=== PATIENT | male | born 1960 | race Caucasian/White ===

== ENCOUNTER 2019-07-15 14:00 | IRF | payer OTHER, SELFPAY ==
--- NOTE | ~2019-07-15 | XR_ITS ---
EXAMINATION: XR barium swallow modified DATE: 07/29/2019 09:23 INDICATION: Dysphagia. TECHNIQUE: Modified barium esophagram was performed by myself to administered fluoroscopy, in conjun ction with speech pathologist who administered barium in varying consistencies as per speech patholog ist documentation. This was recorded on tape. A single fluoroscopic spot image was recorded. The DAP for this procedure was 3.07 Gycm2. Fluoroscopy exposure time was 3.7 minutes. FINDINGS: Oral stage: Premature spilling into the pharynx. Pharyngeal phase: Adequate function. Laryngeal penetration: None. Aspiration: None. Laryngeal sensitivity: Present. IMPRESSION: Premature spilling into the pharynx, otherwise unremarkable modified esophagram. Please refer to speech pathologist findings and specific feeding recommendations. Reviewed, dictated and finalized at location A. IMPRESSION: Premature spilling into the pharynx, otherwise unremarkable modifie d esophagram. Please refer to speech pathologist findings and specific feeding recommendations.
--- NOTE | ~2019-07-15 | XR_ITS ---
EXAMINATION: XR G tube evaluation w imaging INDICATION: Assess PEG tube position TECHNIQUE: Portable AP view of the abdomen is obtained. 40 cc of Omnipaque 350 contrast were injected by the technologist. COMPARISON: None available FINDINGS: The PEG tube is within the stomach as evidenced by contrast opacification of the stomach. T here are no dilated loops of bowel. Enteric contrast material is seen throughout the colon, recommend correlation for history of recent enteric contrast administration not at this institution. IMPRESSION: 1. PEG tube within the stomach. Reviewed, dictated and finalized at location A.
[2019-07-15 14:00] VITALS: BP 104/50; PULSE 57; RESP 18; TEMP 36; O2SAT 95; BMI 28.1
--- NOTE | 2019-07-15 15:22 | ADMGEN ---
1400 Patient arrived via Medical Transport van by wheelchair. Alert and orientated. This patient, Carlito Daniels, was admitted to [facility] Room 221-02. Patient/family oriented to hospital policies and general routines including ID bracelet, bed and alarms, visiting hours, pain management, procedures, bathroom and other care routines, personal items, smoking policy, room service/diet, and visiting hours. Valuables list has been completed. Information on how to activate the Rapid Response Team has been discussed. Patient/Family are encouraged to report perceived risks to care and to ask questions if they do not understand what they are told or what they should do.
[2019-07-15 17:42] LABS: Glucose Point of Care 126 (65-105)
[2019-07-15] MEDS: INSULIN GLARGINE (*BKC) 100 UNITS/ML 35 UNITS SUB-Q (18:45)
[2019-07-15] MEDS: GABAPENTIN 300 MG CAPSULE PO (18:46)
[2019-07-15 22:00] VITALS: BP 109/62; PULSE 88; RESP 20; TEMP 36.9; O2SAT 94
[2019-07-15 23:56] LABS: Glucose Point of Care 134 (65-105)
[2019-07-16 04:48] LABS: Hemoglobin A1C 11.8 % (<5.7)
[2019-07-16 04:49] LABS: Blood Urea Nitrogen 45 mg/dL (9-20); Calcium 9.2 mg/dL (8.4-10.2); Carbon Dioxide 34 mmol/L (22-30); Chloride 95 mmol/L (98-107); Cholesterol 99 mg/dL (0-200); Estimated CRCL calculation 63 ml/min; Estimated Glomerular Filt Rate > 60; Glucose 190 mg/dL (75-110); HDL Direct 23 mg/dL; Potassium 3.9 mmol/L (3.4-5.0); Sodium 135 mmol/L (137-145); Triglycerides 105 mg/dL (<150)
[2019-07-16 04:50] LABS: Basophils Absolute Auto 0.1 K/mm3 (0.0-0.1); Basophils Percent Auto 0.4 % (0.2-1.2); Eosinophils Absolute Auto 0.4 K/mm3 (0-0.3); Eosinophils Percent Auto 3.2 % (0-4.4); Hematocrit 45.4 % (42.0-52.0); Hemoglobin 14.6 g/dL (14.0-18.0); Immature Granulocyte Absolute 0.05 K/mm3 (0.00-0.031); Immature Granulocyte Percent A 0.4 % (0-0.5); Lymphocytes Absolute Auto 2.05 K/mm3 (0.9-3.2); Lymphocytes Percent Auto 16.9 % (18.3-44.2); Mean Corpuscular HGB Conc 32.2 g/dl (32-36); Mean Corpuscular Hemoglobin 29.4 pg (26-34); Mean Corpuscular Volume 91.3 fl (80-100); Mean Platelet Volume 12.2 fl (7.4-10.4); Monocytes Absolute Auto 1.1 K/mm3 (0.1-0.6); Monocytes Percent Auto 8.7 % (2.6-8.5); Neutrophils Absolute Auto 8.5 K/mm3 (1.3-6.7); Neutrophils Percent Auto 70.4 % (45.5-73.1); Platelet Count Result 306 k/mm3 (150-375); Red Blood Count 4.97 M/mm3 (4.6-6.20); Red Cell Distribution Width 13.2 % (11.5-14.5); White Blood Count 12.1 K/mm3 (4.5-10.0)
[2019-07-16 04:59] LABS: LDL Cholesterol Direct 53 mg/dL
[2019-07-16 05:48] LABS: Glucose Point of Care 180 (65-105)
[2019-07-16 06:00] VITALS: BP 123/64; PULSE 66; RESP 16; TEMP 36.8; O2SAT 94
[2019-07-16] MEDS: FERROUS SULFATE 324 MG TABLET PO (08:34)
[2019-07-16] MEDS: ASPIRIN 81 MG CHEWABLE TABLET FEED TUBE (08:35)
[2019-07-16] MEDS: ATORVASTATIN 40 MG TABLET PO (08:35)
[2019-07-16 08:36] VITALS: PULSE 66
[2019-07-16] MEDS: CHLORTHALIDONE 25 MG TABLET FEED TUBE (08:36)
[2019-07-16] MEDS: carvediloL 25 MG TABLET FEED TUBE ×2 (08:36→17:28)
[2019-07-16] MEDS: GABAPENTIN 300 MG CAPSULE PO ×3 (08:37→17:28)
[2019-07-16] MEDS: CLOPIDOGREL BISULFATE 75 MG TABLET FEED TUBE (08:37)
[2019-07-16] MEDS: DOCUSATE SODIUM LIQ 100 MG/10 ML UDC FEED TUBE (08:37)
[2019-07-16] MEDS: INSULIN GLARGINE (*BKC) 100 UNITS/ML 35 UNITS SUB-Q ×2 (08:38→17:32)
[2019-07-16] MEDS: lisinopriL 20 MG TABLET 40 MG FEED TUBE (08:38)
[2019-07-16 11:43] LABS: Glucose Point of Care 238 (65-105)
[2019-07-16] MEDS: INSULIN ASPART (*BKC) 100 UNITS/ML SUB-Q (12:28)
--- NOTE | 2019-07-16 13:48 | REHAB_ITS ---
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 The patient was seen on 07/15 at 10:30 a.m. HISTORY OF PRESENT ILLNESS: A 58-year-old right-handed male with past medical history of: 1. Diabetes mellitus. 2. Hypertension. 3. Hyperlipidemia. 4. Polyarthritis. He presented to [facility] with left upper extremity, left-sided of face and left lower extremity weakness along with the gaze deviation to the left with hemineglect and hemisensory loss. Initial NIHSS was 8. Upon presentation, his blood pressure was over 200, was difficult to control. He was given tPA and was started on nitroglycerin drip and given a hydralazine bolus as well. He was then transferred to [facility] in [place], [place]. While getting tPA, he was taken to the cardiac catheterization. There was no significant coronary artery disease. No thrombectomy was performed. However, the patient was felt to have a posterior circulation stroke and given the anatomy in the amount of atherosclerosis. Postprocedure, the patient was hypertensive and he was having significant issues clearing the secretion. He was noted to be aphasic and dysarthric. Therefore, he was intubated. When he was extubated on 07/01/2019, Vascular Neurology was consulted and recommended dual antiplatelet therapy and high intensity statin. The patient was continued on aspirin, Plavix, and atorvastatin. He failed his swallowing study and a PEG tube was placed on 07/07/2019. He was at goal and tolerating at present. During this hospital, the patient has experienced leukocytosis with unclear etiology. Chest x-ray within normal limits. No abdominal pain. PICC site looks clean. The patient was started on broad-spectrum antibiotics. His WBCs were now downtrending and antibiotic were deescalated. He also had hyperglycemia, insulin regimen was changed and Monitor. Left shoulder pain without fracture on x-ray was noted. Physical examination continued to reveal left-sided weakness, impaired balance, decreased gross motor control, dysphagia, dysarthria. He was discharged to rehab on NovoLog for DVT prophylaxis. He had not traveled outside the [place] or had contact with someone, who was still and has traveled outside the [place] in the past 21 days. He has not traveled to an area of the [place] that was experiencing known transmission of COVID and has not had close personal contact with anyone that has one. The patient did not have a fever, did not experience any lower respiratory illness symptoms. Therapy was initiated on the acute care facility and patient was transferred to us from [facility] on 07/15/2019. SURGERY OR FALL: The patient has had major surgery in the last 100 days prior to admission, had a PEG tube placement, this admission has had no falls in the past year. The patient has had no fall with injury in the past year as well. PAST MEDICAL HISTORY: Consistent with: 1. Diabetes mellitus. 2. Hypertension. 3. Hyperlipidemia. 4. Polyarthritis. PAST SURGICAL HISTORY: 1. Hernial repair. 2. Cardiac catheterization. SOCIAL HISTORY: The patient lives with his in one level house with 1 step to enter, was completely independent prior with no assistive device. was available to assist him following inpatient rehab if necessary. The patient reported no falls in the last 6 months. The patient has had PEG tube placement in this admission. He is a never smoker and at current, he is a smokeless tobacco user. No alcohol use. FAMILY HISTORY: Positive for the cancer in the mother, cancer in the father, heart attack in sister and cancer in the brother, [place]
[2019-07-16 14:00] VITALS: BP 104/75; PULSE 60; RESP 20; TEMP 36.6; O2SAT 98
[2019-07-16 17:28] VITALS: PULSE 60
[2019-07-16 17:49] LABS: Glucose Point of Care 188 (65-105)
[2019-07-16] MEDS: ENOXAPARIN 40 MG/0.4 ML SYRINGE SUB-Q (20:28)
[2019-07-16 22:00] VITALS: BP 102/63; PULSE 60; RESP 16; TEMP 36.3; O2SAT 94
[2019-07-16 23:49] LABS: Glucose Point of Care 143 (65-105)
[2019-07-17 05:58] LABS: Glucose Point of Care 186 (65-105)
[2019-07-17 06:00] VITALS: BP 120/69; PULSE 62; RESP 18; TEMP 36.4; O2SAT 95
[2019-07-17] MEDS: FERROUS SULFATE 324 MG TABLET PO (09:13)
[2019-07-17 09:14] VITALS: PULSE 62
[2019-07-17] MEDS: carvediloL 25 MG TABLET FEED TUBE ×2 (09:14→17:48)
[2019-07-17] MEDS: CHLORTHALIDONE 25 MG TABLET FEED TUBE (09:14)
[2019-07-17] MEDS: ATORVASTATIN 40 MG TABLET PO (09:14)
[2019-07-17] MEDS: ASPIRIN 81 MG CHEWABLE TABLET FEED TUBE (09:14)
[2019-07-17] MEDS: INSULIN GLARGINE (*BKC) 100 UNITS/ML 35 UNITS SUB-Q ×2 (09:15→17:50)
[2019-07-17] MEDS: DOCUSATE SODIUM LIQ 100 MG/10 ML UDC FEED TUBE (09:15)
[2019-07-17] MEDS: GABAPENTIN 300 MG CAPSULE PO ×3 (09:15→17:49)
[2019-07-17] MEDS: CLOPIDOGREL BISULFATE 75 MG TABLET FEED TUBE (09:15)
[2019-07-17] MEDS: lisinopriL 20 MG TABLET 40 MG FEED TUBE (09:16)
--- NOTE | 2019-07-17 11:21 | WPDNEURORHBP ---
Subjective Date/time seen: aarti medullary stroke with DM,hypertension,[id number]/07/20 11:21 Functional Status Ambulation Ability Ambulation Assistive Devices: Railings Transfers Ability Ability to Transfer In/Out of Chair: Moderate Assistance X 1 Exam Const: General: cooperative, comfortable and no acute distress Nutritional Appearance: average body habitus HENMT: Head: normal to inspection Ears: hearing grossly normal bilaterally General nose exam: No nasal discharge present Eyes: General: appearance normal, both eyes and all related structures Periorbital: periorbital findings normal Conjunctivae: conjunctivae normal Cornea: corneas normal Pupils: Equal, round and reactive pupils present EOM: EOMs intact bilaterally Neck: Neck: full ROM Resp: Effort & Inspection: normal respiratory effort Auscultation: clear to auscultation bilaterally Cardio: Rate: regular rate Rhythm: regular rhythm GI: Auscultation: normal bowel sounds Skin: General skin exam: no rashes or lesions noted Neuro: General: oriented to person and moves all extremities Cranial nerves: Yes Equal, round and reactive pupils present, Yes Bilaterally intact EOM present, Yes Nystagmus not present and Yes Normal hearing present Objective Data Vital Signs Vital Signs: Vital Signs - 24 hr 07/16/19 14:00 07/16/19 17:28 07/16/19 22:00 Temperature 36.6 C 36.3 C L Pulse Rate 60 60 60 Respiratory Rate 20 16 Blood Pressure 104/75 102/63 Pulse Oximetry 98 94 07/17/19 06:00 07/17/19 09:14 Temperature 36.4 C Pulse Rate 62 62 Respiratory Rate 18 Blood Pressure 120/69 Pulse Oximetry 95 Intake/Output Intake/Output: Intake & Output 07/14/19 07/15/19 07/16/19 07/17/19 23:59 23:59 23:59 23:59 Intake Total 3132 1020 Output Total 750 800 Balance 2382 220 Meds/Results Medications: Active Medications Generic Name Dose Route Start Last Admin Trade Name Freq PRN Reason Stop Dose Admin Hydrocodone Bitart/Acetaminophen 1 tab 07/15/19 17:00 07/17/19 09:15 [place] 7.5-325 Mg FEED TUBE 1 tab BID JIMMIE Administration Aspirin 81 mg 07/16/19 09:00 07/17/19 09:14 Aspirin Chewable FEED TUBE 81 mg DAILY JIMMIE Administration Atorvastatin Calcium 40 mg 07/16/19 09:00 07/17/19 09:14 Lipitor PO 40 mg DAILY JIMMIE Administration Bisacodyl 10 mg 07/15/19 16:25 Dulcolax Suppository RECTAL DAILY PRN Constipation Carvedilol 25 mg 07/16/19 09:00 07/17/19 09:14 Coreg FEED TUBE 25 mg BID JIMMIE Administration Chlorthalidone 25 mg 07/16/19 09:00 07/17/19 09:14 [place] FEED TUBE 25 mg DAILY JIMMIE Administration Clopidogrel Bisulfate 75 mg 07/16/19 09:00 07/17/19 09:15 Plavix FEED TUBE 75 mg DAILY JIMMIE Administration Dextrose 12.5 gm 07/15/19 16:19 Dextrose 50% Syringe IV PUSH PRN PRN Hypoglycemia Protocol Docusate Sodium 100 mg 07/16/19 09:00 07/17/19 09:15 Colace Liquid FEED TUBE 100 mg DAILY JIMMIE Administration Enoxaparin Sodium 40 mg 07/16/19 21:00 07/16/19 20:28 Lovenox SUB-Q 40 mg HS [facility] Administration Fentanyl 12 mcg 07/16/19 09:00 Duragesic 12 Mcg Patch TRANSDERM Q72H [facility] Ferrous Sulfate 324 mg 07/16/19 08:00 07/17/19 09:13 Ferrous Sulfate PO 324 mg DAILY@0800 [facility] Administration Gabapentin 300 mg 07/15/19 17:00 07/17/19 09:15 Neurontin PO 300 mg TID JIMMIE Administration Glucagon 1 mg 07/15/19 16:19 Glucagon For Inj IM PRN PRN Hypoglycemia Protocol Glucose 15 gm 07/15/19 17:55 Glutose 15 FEED TUBE PRN PRN Hypoglycemia Protocol Dextrose 1,000 mls @ 100 mls/hr 07/15/19 16:19 Dextrose 5% 1,000 Ml IVPB PRN PRN Hypoglycemia Protocol Insulin Aspart 3 - 6 units 07/15/19 18:00 07/17/19 05:55 Novolog SUB-Q Not Given Q6HR [facility] Protocol Insulin Glargine 35 units 07/15/19 17:00 07/17/19 09:15 Nicho
[2019-07-17 12:09] LABS: Glucose Point of Care 182 (65-105)
[2019-07-17 14:00] VITALS: BP 109/57; PULSE 62; RESP 18; TEMP 36.3; O2SAT 97
[2019-07-17 17:48] VITALS: PULSE 62
[2019-07-17 18:14] LABS: Glucose Point of Care 180 (65-105)
[2019-07-17] MEDS: ENOXAPARIN 40 MG/0.4 ML SYRINGE SUB-Q (20:26)
[2019-07-17 22:00] VITALS: BP 103/54; PULSE 57; RESP 18; TEMP 36.7; O2SAT 95
[2019-07-17 23:57] LABS: Glucose Point of Care 155 (65-105)
[2019-07-18 05:48] LABS: Glucose Point of Care 188 (65-105)
[2019-07-18 06:00] VITALS: BP 120/82; PULSE 61; RESP 18; TEMP 36.9; O2SAT 92
[2019-07-18] MEDS: ASPIRIN 81 MG CHEWABLE TABLET FEED TUBE (09:14)
[2019-07-18] MEDS: FERROUS SULFATE 324 MG TABLET PO (09:14)
[2019-07-18] MEDS: CHLORTHALIDONE 25 MG TABLET FEED TUBE (09:14)
[2019-07-18] MEDS: ATORVASTATIN 40 MG TABLET PO (09:14)
[2019-07-18] MEDS: DOCUSATE SODIUM LIQ 100 MG/10 ML UDC FEED TUBE (09:14)
[2019-07-18] MEDS: CLOPIDOGREL BISULFATE 75 MG TABLET FEED TUBE (09:14)
[2019-07-18] MEDS: GABAPENTIN 300 MG CAPSULE PO ×3 (09:15→17:54)
[2019-07-18] MEDS: lisinopriL 20 MG TABLET 40 MG FEED TUBE (09:15)
[2019-07-18] MEDS: INSULIN GLARGINE (*BKC) 100 UNITS/ML 35 UNITS SUB-Q ×2 (09:15→17:54)
[2019-07-18 09:22] VITALS: PULSE 61
[2019-07-18] MEDS: carvediloL 25 MG TABLET FEED TUBE ×2 (09:22→17:53)
--- NOTE | 2019-07-18 10:13 | RPD ---
INDIVIDUALIZED PLAN OF CARE FOR Carlito Daniels Brief Synthesis of Pre-Admission Screen, Post-Admission Evaluation and Therapy Evaluations: The patient presents to rehab with acute left lateral medullary stroke. Comorbidities include Left-sided hemiparesis, oropharyngeal dysphagia, leukocytosis, trechobronchitis, hypertensive urgency, type 2 diabetes mellitus with hyperglycemia, left shoulder pain, dysarthria, aspiration pneumonia, status post tPA. The patient requires physician services for neurology services, medical oversight, and coordination of care. Emotional needs will be monitored as depression is a common sequelae of stroke. The patient needs physician monitoring and treatment of hypertension, dysphagia, leukocytosis, uncontrolled diabetes mellitus, monitoring for adverse reactions to new medications, monitoring of infection, and pain control. The patient requires nursing services for frequent neuro checks, anticoagulation therapy, medication management and education, pressure relief and skin care management, monitoring of labs, diabetes management and education, and fall/safety precautions. Deficits include:ADLs, Balance, Endurance, Family Training/Education, Mobility, Pain Management, ROM, Safety, Speech, Strength, Swallowing, Transfers Line Tender/Case Management for: Discharge Planning and Patient/Family Counseling Physical Therapy: 5 days per week for 60 minutes. Treatments may include: Therapeutic Exercise, Gait Training, Neuromuscular Re-education, Transfer Training, Community Reintegration, Bed Mobility, Patient/Family Education, Wheelchair Mobility Group Therapy/Concurrent Therapy Rationales: -Improve attention span during functional activities in a distracted environment. -Enhance problem solving and/or adequate judgment skills during functional activities in a distracted environment. -Promote increased safety awareness in a distracted environment to reduce fall risk with functional tasks, transfers, and ambulation to allow a more safe, self-sufficient return to the home environment. -Improve dynamic balance skills to promote safety and independence with functional activities in a distracted environment for maximum gain. Occupational Therapy: 5 days per week for 60 minutes. Treatments may include: Therapeutic Exercise, Therapeutic Activity, Cognitive Training, Self-Care Transfer Training, Community Reintegration, Home Management, Patient/Family Education, Wheelchair Mobility Training, Energy Conservation Training Group Therapy/Concurrent Therapy Rationales: -Allow therapist to observe and teach generalization and carry-over of skills learned in individual therapy. -Enhance problem solving and sequencing skills during therapeutic activities in a distracted environment. -Promote increased safety awareness in a realistic setting to reduce fall risk with functional tasks due to visual and verbal distractions. -Increase functional level with ADLs, ADL transfers and use of adaptive equipment through therapeutic activities with others while promoting safety to allow a more safe, self-sufficient return home. Speech Therapy: 5 days per week for 60 minutes. Treatments may include: Dysphasia Therapy, Speech/Language/Communication Therapy, Cognitive Training, Patient/Family Education Group Therapy/Concurrent Therapy - Rationale: -Allow therapist to observe and teach generalization and carry-over of skills learned in individual therapy. -Improve comprehension skills with complex or abstract ideas through discussion in a realistic setting. -Enhance problem solving skills with complex issues during activities in a distracted environment. -Promote increased memory skills and concentration in a distracted environment for a safe transition home. -Improve attention and focus with language/communication skills in a realistic and supportive therapeutic setting. -Allow for practice of expression of basic needs and ideas through functional activities with others. Becca
[2019-07-18 10:44] VITALS: BMI 28.1
[2019-07-18] MEDS: INSULIN ASPART (*BKC) 100 UNITS/ML SUB-Q (12:50)
[2019-07-18 14:00] VITALS: BP 98/73; PULSE 62; RESP 16; TEMP 36.6; O2SAT 98
[2019-07-18 17:53] VITALS: PULSE 62
[2019-07-18] MEDS: ENOXAPARIN 40 MG/0.4 ML SYRINGE SUB-Q (21:13)
[2019-07-18 22:00] VITALS: BP 103/56; PULSE 57; RESP 18; TEMP 36.3; O2SAT 95
[2019-07-19 01:05] LABS: Glucose Point of Care 193 (65-105)
[2019-07-19 01:05] LABS: Glucose Point of Care 189 (65-105)
[2019-07-19 01:05] LABS: Glucose Point of Care 226 (65-105)
[2019-07-19 05:55] VITALS: BP 132/77; PULSE 61; RESP 18; TEMP 36.7; O2SAT 98
[2019-07-19] MEDS: INSULIN ASPART (*BKC) 100 UNITS/ML SUB-Q ×2 (06:10→12:04)
[2019-07-19 06:54] LABS: Glucose Point of Care 232 (65-105)
[2019-07-19] MEDS: FERROUS SULFATE 324 MG TABLET PO (10:39)
[2019-07-19] MEDS: ASPIRIN 81 MG CHEWABLE TABLET FEED TUBE (10:39)
[2019-07-19] MEDS: ATORVASTATIN 40 MG TABLET PO (10:39)
[2019-07-19 10:40] VITALS: PULSE 61
[2019-07-19] MEDS: carvediloL 25 MG TABLET FEED TUBE ×2 (10:40→17:50)
[2019-07-19] MEDS: DOCUSATE SODIUM LIQ 100 MG/10 ML UDC FEED TUBE (10:40)
[2019-07-19] MEDS: CLOPIDOGREL BISULFATE 75 MG TABLET FEED TUBE (10:40)
[2019-07-19] MEDS: CHLORTHALIDONE 25 MG TABLET FEED TUBE (10:40)
[2019-07-19] MEDS: GABAPENTIN 300 MG CAPSULE PO ×3 (10:41→17:50)
[2019-07-19] MEDS: INSULIN GLARGINE (*BKC) 100 UNITS/ML 35 UNITS SUB-Q ×2 (10:43→17:53)
[2019-07-19] MEDS: lisinopriL 20 MG TABLET 40 MG FEED TUBE (10:44)
--- NOTE | 2019-07-19 12:30 | PCDIET ---
Nutrition Follow-Up Complete: Nutrition Diagnosis: Inadequate oral intake related to dysphagia as evidenced by need for g-tube feedings. Nutrition Goal: Patient to meet estimated nutritional needs. Goal met. Patient tolerating tube feedings well; however, therapy has requested bolus feedings to allow patient to be off feeding pump during therapy. New order for 360mL Glucerna 1.2 every 6 hours with 150mL water flush every 6 hours which will not change amount of kcal, protein, or free water administered. Last recorded weight is 84 kg. Recommend obtaining new weight. Bowel Motility: Last documented BM 07/15/19 - however, patient reports regular BMs. Labs Reviewed: Glu (232) Meds Noted: Colace, Ferrous Sulfate, Novolog, Lantus Additional Notes: No documented skin breakdown. Will continue to monitor with same goal. Nutrition Monitoring and Evaluation: Follow up every Thursday/Thursday.
[2019-07-19 12:34] LABS: Glucose Point of Care 239 (65-105)
[2019-07-19 14:00] VITALS: BP 105/64; PULSE 60; RESP 18; TEMP 36.9; O2SAT 98
--- NOTE | 2019-07-19 14:24 | WPDNEURORHBP ---
Subjective Date/time seen: 07/19/19 14:24 Interval history: this 58-year-old gentleman is here after having had left medullary stroke which has left him with the dysphagia right-sided moderately severe hemiparesis and dysarthria he has a PEG tube and he is NPO at this time otherwise he denies any headache nausea vomiting chest pain shortness of breath fever chills sore throat and engage in therapy fairly well Review of Systems Review of Systems: All systems reviewed & are unremarkable except as noted in HPI and below Functional Status Ambulation Ability Ability to Ambulate 10 Feet: Moderate Assistance X 1 Ambulation Assistive Devices: Cane, Alberto and Railings Transfers Ability Ability to Transfer In/Out of Chair: Minimum Assistance X 1 Exam Const: General: comfortable and no acute distress HENMT: General nose exam: Normal nares present Mouth: Yes moist mucous membranes Eyes: General: appearance normal, both eyes and all related structures Neck: Neck: supple and no JVD Resp: Effort & Inspection: normal respiratory effort Auscultation: clear to auscultation bilaterally Cardio: Rate: regular rate Rhythm: regular rhythm GI: GI Palp: Yes Soft to palpation Auscultation: normal bowel sounds Skin: General skin exam: normal color and no rashes or lesions noted Neuro: Other: patient is awake and alert has dysarthria and dysphagia and right-sided hemiparesis slowly improving the PEG tube is intact and functioning well needing assistance is almost all the activities of daily Extrem: General: normal to inspection Psych: Mental Status: mental status grossly normal Objective Data Vital Signs Vital Signs: Vital Signs - 24 hr 07/18/19 17:53 07/18/19 22:00 07/19/19 05:55 Temperature 36.3 C L 36.7 C Pulse Rate 62 57 L 61 Respiratory Rate 18 18 Blood Pressure 103/56 L 132/77 Pulse Oximetry 95 98 07/19/19 10:40 Temperature Pulse Rate 61 Respiratory Rate Blood Pressure Pulse Oximetry Intake/Output Intake/Output: Intake & Output 07/16/19 07/17/19 07/18/19 07/19/19 23:59 23:59 23:59 23:59 Intake Total 3132 1020 1020 1568 Output Total 750 1550 800 550 Balance 2382 -808 390 6051 Meds/Results Medications: Active Medications Generic Name Dose Route Start Last Admin Trade Name Freq PRN Reason Stop Dose Admin Hydrocodone Bitart/Acetaminophen 1 tab 07/15/19 17:00 07/19/19 10:42 [place] 7.5-325 Mg FEED TUBE 1 tab BID JIMMIE Administration Aspirin 81 mg 07/16/19 09:00 07/19/19 10:39 Aspirin Chewable FEED TUBE 81 mg DAILY JIMMIE Administration Atorvastatin Calcium 40 mg 07/16/19 09:00 07/19/19 10:39 Lipitor PO 40 mg DAILY JIMMIE Administration Bisacodyl 10 mg 07/15/19 16:25 Dulcolax Suppository RECTAL DAILY PRN Constipation Carvedilol 25 mg 07/16/19 09:00 07/19/19 10:40 Coreg FEED TUBE 25 mg BID JIMMIE Administration Chlorthalidone 25 mg 07/16/19 09:00 07/19/19 10:40 [place] FEED TUBE 25 mg DAILY JIMMIE Administration Clopidogrel Bisulfate 75 mg 07/16/19 09:00 07/19/19 10:40 Plavix FEED TUBE 75 mg DAILY JIMMIE Administration Dextrose 12.5 gm 07/15/19 16:19 Dextrose 50% Syringe IV PUSH PRN PRN Hypoglycemia Protocol Docusate Sodium 100 mg 07/16/19 09:00 07/19/19 10:40 Colace Liquid FEED TUBE 100 mg DAILY JIMMIE Administration Enoxaparin Sodium 40 mg 07/16/19 21:00 07/18/19 21:13 Lovenox SUB-Q 40 mg HS JIMMIE Administration Fentanyl 12 mcg 07/16/19 09:00 Duragesic 12 Mcg Patch TRANSDERM Q72H [facility] Ferrous Sulfate 324 mg 07/16/19 08:00 07/19/19 10:39 Ferrous Sulfate PO 324 mg DAILY@0800 JIMMIE Administration Gabapentin 300 mg 07/15/19 17:00 07/19/19 12:04 Neurontin PO 300 mg TID JIMMIE Administration Glucagon 1 mg 07/15/19 16:19 Glucagon For Inj IM PRN PRN Hypoglycemia Protocol Glucose 15 gm 07/15/19 17:55 Glutose 15 FEED TUBE
[2019-07-19 17:41] LABS: Glucose Point of Care 124 (65-105)
[2019-07-19 17:50] VITALS: PULSE 60
--- NOTE | 2019-07-19 19:29 | PC.NURSE ---
At 1730 patients called and had concerns about patient being depressed. she requested that he be put on an antidepressant. I spoke with Mr. Daniels, he stated he was sad for awhile today because he found out that it will take longer for him to feel better. he was very adamant that he is not depressed and does not want an antidepressant
[2019-07-19] MEDS: ENOXAPARIN 40 MG/0.4 ML SYRINGE SUB-Q (20:29)
[2019-07-19 22:00] VITALS: BP 84/51; PULSE 57; RESP 18; TEMP 35.9; O2SAT 95
[2019-07-19 23:50] LABS: Glucose Point of Care 131 (65-105)
[2019-07-20 06:00] VITALS: BP 106/61; PULSE 55; RESP 18; TEMP 35.8; O2SAT 98
[2019-07-20 06:48] LABS: Glucose Point of Care 89 (65-105)
[2019-07-20] MEDS: FERROUS SULFATE 324 MG TABLET PO (08:57)
[2019-07-20] MEDS: ATORVASTATIN 40 MG TABLET PO (08:57)
[2019-07-20] MEDS: ASPIRIN 81 MG CHEWABLE TABLET FEED TUBE (08:57)
[2019-07-20 08:58] VITALS: PULSE 62
[2019-07-20] MEDS: carvediloL 25 MG TABLET FEED TUBE ×2 (08:58→17:40)
[2019-07-20] MEDS: DOCUSATE SODIUM LIQ 100 MG/10 ML UDC FEED TUBE (08:59)
[2019-07-20] MEDS: CLOPIDOGREL BISULFATE 75 MG TABLET FEED TUBE (08:59)
[2019-07-20] MEDS: INSULIN GLARGINE (*BKC) 100 UNITS/ML 35 UNITS SUB-Q ×2 (08:59→17:41)
[2019-07-20] MEDS: lisinopriL 20 MG TABLET 40 MG FEED TUBE (08:59)
[2019-07-20] MEDS: GABAPENTIN 300 MG CAPSULE PO ×3 (08:59→17:41)
[2019-07-20] MEDS: CHLORTHALIDONE 25 MG TABLET FEED TUBE (08:59)
[2019-07-20] MEDS: NYSTATIN 100,000 UNITS/ML SUSP 5 ML ORAL.SUSP PO ×3 (12:24→20:12)
[2019-07-20 12:25] LABS: Glucose Point of Care 132 (65-105)
--- NOTE | 2019-07-20 12:39 | WPDNEURORHBP ---
Subjective Date/time seen: 07/20/19 12:39 Interval history: this 58-year-old gentleman is here after having had medullary infarct which has left him with the dysphagia and the moderately severe right-sided hemiparesis he is being tube fed because of dysphagia however overall getting better he took shower and feeling much better he denies any headache nausea vomiting chest pain shortness of breath fever chills or sore throat Review of Systems Review of Systems: All systems reviewed & are unremarkable except as noted in HPI and below Functional Status Ambulation Ability Ability to Ambulate 10 Feet: Moderate Assistance X 1 Ambulation Assistive Devices: Railings Transfers Ability Ability to Transfer In/Out of Chair: Minimum Assistance X 1 Exam Const: General: comfortable and no acute distress HENMT: General nose exam: Normal nares present Mouth: Yes moist mucous membranes Eyes: General: appearance normal, both eyes and all related structures Neck: Neck: supple and no JVD Resp: Effort & Inspection: normal respiratory effort Auscultation: clear to auscultation bilaterally Cardio: Rate: regular rate Rhythm: regular rhythm GI: GI Palp: Yes Soft to palpation Auscultation: normal bowel sounds Other: the PEG tube is clean and healthy and functioning well Skin: General skin exam: normal color and no rashes or lesions noted Neuro: Other: patient dysarthria is improving and right-sided hemiparesis improving overall improvement is noted Extrem: General: normal to inspection Psych: Mental Status: mental status grossly normal Objective Data Vital Signs Vital Signs: Vital Signs - 24 hr 07/19/19 14:00 07/19/19 17:50 07/19/19 22:00 Temperature 36.9 C 35.9 C L Pulse Rate 60 60 57 L Respiratory Rate 18 18 Blood Pressure 105/64 84/51 L Pulse Oximetry 98 95 07/20/19 06:00 07/20/19 08:58 Temperature 35.8 C L Pulse Rate 55 L 62 Respiratory Rate 18 Blood Pressure 106/61 Pulse Oximetry 98 Intake/Output Intake/Output: Intake & Output 07/17/19 07/18/19 07/19/19 07/20/19 23:59 23:59 23:59 23:59 Intake Total 1020 1020 1568 1000 Output Total 7956 076 5142 800 Balance -530 220 418 200 Meds/Results Medications: Active Medications Generic Name Dose Route Start Last Admin Trade Name Freq PRN Reason Stop Dose Admin Hydrocodone Bitart/Acetaminophen 1 tab 07/15/19 17:00 07/20/19 08:59 [place] 7.5-325 Mg FEED TUBE 1 tab BID JIMMIE Administration Aspirin 81 mg 07/16/19 09:00 07/20/19 08:57 Aspirin Chewable FEED TUBE 81 mg DAILY JIMMIE Administration Atorvastatin Calcium 40 mg 07/16/19 09:00 07/20/19 08:57 Lipitor PO 40 mg DAILY JIMMIE Administration Bisacodyl 10 mg 07/15/19 16:25 Dulcolax Suppository RECTAL DAILY PRN Constipation Carvedilol 25 mg 07/16/19 09:00 07/20/19 08:58 Coreg FEED TUBE 25 mg BID JIMMIE Administration Chlorthalidone 25 mg 07/16/19 09:00 07/20/19 08:59 [place] FEED TUBE 25 mg DAILY JIMMIE Administration Clopidogrel Bisulfate 75 mg 07/16/19 09:00 07/20/19 08:59 Plavix FEED TUBE 75 mg DAILY JIMMIE Administration Dextrose 12.5 gm 07/15/19 16:19 Dextrose 50% Syringe IV PUSH PRN PRN Hypoglycemia Protocol Docusate Sodium 100 mg 07/16/19 09:00 07/20/19 08:59 Colace Liquid FEED TUBE 100 mg DAILY JIMMIE Administration Enoxaparin Sodium 40 mg 07/16/19 21:00 07/19/19 20:29 Lovenox SUB-Q 40 mg HS JIMMIE Administration Fentanyl 12 mcg 07/16/19 09:00 [place] 12 Mcg Patch TRANSDERM Q72H [facility] Ferrous Sulfate 324 mg 07/16/19 08:00 07/20/19 08:57 Ferrous Sulfate PO 324 mg DAILY@0800 JIMMIE Administration Gabapentin 300 mg 07/15/19 17:00 07/20/19 12:24 Neurontin PO 300 mg TID JIMMIE Administration Glucagon 1 mg 07/15/19 16:19 Glucagon For Inj IM PRN PRN Hypoglycemia Protocol Glucose 15 gm 07/15/19 17:55 Glutose 15 FEED TUBE
[2019-07-20 14:00] VITALS: BP 103/56; PULSE 58; RESP 18; TEMP 36.4; O2SAT 97
[2019-07-20 16:58] LABS: Glucose Point of Care 179 (65-105)
[2019-07-20 17:40] VITALS: PULSE 60
[2019-07-20] MEDS: ENOXAPARIN 40 MG/0.4 ML SYRINGE SUB-Q (20:12)
[2019-07-20 22:00] VITALS: BP 98/55; PULSE 74; RESP 18; TEMP 35.9; O2SAT 95
[2019-07-20 23:50] LABS: Glucose Point of Care 92 (65-105)
[2019-07-21 05:23] LABS: Glucose Point of Care 59 (65-105)
--- NOTE | 2019-07-21 05:48 | PC.NURSE ---
accucheck 59 at 0515- asymptomatic, glucerna g-tube feeding given, accuchannak 67 at 0535, npo
[2019-07-21 05:57] LABS: Glucose Point of Care 67 (65-105)
[2019-07-21 06:00] VITALS: BP 106/75; PULSE 56; RESP 18; TEMP 35.6; O2SAT 94
[2019-07-21] MEDS: FERROUS SULFATE 324 MG TABLET PO (09:47)
[2019-07-21 09:48] VITALS: PULSE 56
[2019-07-21] MEDS: ATORVASTATIN 40 MG TABLET PO (09:48)
[2019-07-21] MEDS: CHLORTHALIDONE 25 MG TABLET FEED TUBE (09:48)
[2019-07-21] MEDS: GABAPENTIN 300 MG CAPSULE PO ×3 (09:48→18:39)
[2019-07-21] MEDS: carvediloL 25 MG TABLET FEED TUBE ×2 (09:48→18:39)
[2019-07-21] MEDS: ASPIRIN 81 MG CHEWABLE TABLET FEED TUBE (09:48)
[2019-07-21] MEDS: CLOPIDOGREL BISULFATE 75 MG TABLET FEED TUBE (09:48)
[2019-07-21] MEDS: DOCUSATE SODIUM LIQ 100 MG/10 ML UDC FEED TUBE (09:48)
[2019-07-21] MEDS: lisinopriL 20 MG TABLET 40 MG FEED TUBE (09:49)
[2019-07-21] MEDS: NYSTATIN 100,000 UNITS/ML SUSP 5 ML ORAL.SUSP PO ×4 (09:49→20:50)
[2019-07-21] MEDS: INSULIN GLARGINE (*BKC) 100 UNITS/ML 35 UNITS SUB-Q ×2 (09:52→18:46)
[2019-07-21 12:39] LABS: Glucose Point of Care 105 (65-105)
--- NOTE | 2019-07-21 12:49 | PCCCNOTE ---
On 07/21/19, the student, [Barry Goode ], provided care and completed [facility] documentation on this patient. I have reviewed the student's documentation and agree with the findings.
[2019-07-21 14:00] VITALS: BP 109/67; PULSE 68; RESP 18; TEMP 36.6; O2SAT 96
[2019-07-21 17:31] LABS: Glucose Point of Care 118 (65-105)
[2019-07-21 18:39] VITALS: PULSE 68
[2019-07-21] MEDS: ENOXAPARIN 40 MG/0.4 ML SYRINGE SUB-Q (20:49)
[2019-07-21 22:00] VITALS: BP 93/63; PULSE 59; RESP 18; TEMP 36.7; O2SAT 99
[2019-07-22 00:14] LABS: Glucose Point of Care 85 (65-105)
[2019-07-22 05:58] LABS: Glucose Point of Care 122 (65-105)
[2019-07-22 06:00] VITALS: BP 95/46; PULSE 55; RESP 18; TEMP 36.5; O2SAT 96
[2019-07-22] MEDS: ASPIRIN 81 MG CHEWABLE TABLET FEED TUBE (08:28)
[2019-07-22] MEDS: FERROUS SULFATE 324 MG TABLET PO (08:28)
[2019-07-22] MEDS: ATORVASTATIN 40 MG TABLET PO (08:28)
[2019-07-22] MEDS: CHLORTHALIDONE 25 MG TABLET FEED TUBE (08:29)
[2019-07-22] MEDS: carvediloL 25 MG TABLET FEED TUBE ×2 (08:29→17:11)
[2019-07-22] MEDS: GABAPENTIN 300 MG CAPSULE PO ×3 (08:30→17:11)
[2019-07-22] MEDS: CLOPIDOGREL BISULFATE 75 MG TABLET FEED TUBE (08:30)
[2019-07-22] MEDS: DOCUSATE SODIUM LIQ 100 MG/10 ML UDC FEED TUBE (08:30)
[2019-07-22] MEDS: lisinopriL 20 MG TABLET 40 MG FEED TUBE (08:32)
[2019-07-22] MEDS: NYSTATIN 100,000 UNITS/ML SUSP 5 ML ORAL.SUSP PO ×4 (08:33→20:52)
[2019-07-22] MEDS: INSULIN GLARGINE (*BKC) 100 UNITS/ML 35 UNITS SUB-Q ×2 (09:00→17:12)
--- NOTE | 2019-07-22 12:39 | WPDNEURORHBP ---
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 is being fed with the PEG tube and tolerating it quite well not ready to be fed orally right now otherwise denies any headache nausea vomiting chest pain shortness of breath fever chills or sore throat Review of Systems Review of Systems: All systems reviewed & are unremarkable except as noted in HPI and below Functional Status Ambulation Ability Ability to Ambulate 10 Feet: Moderate Assistance X 1 Ambulation Assistive Devices: Walker, Wheeled Transfers Ability Ability to Transfer In/Out of Chair: Minimum Assistance X 1 Exam Const: General: comfortable and no acute distress HENMT: General nose exam: Normal nares present Mouth: Yes moist mucous membranes Eyes: General: appearance normal, both eyes and all related structures Neck: Neck: supple and no JVD Resp: Effort & Inspection: normal respiratory effort Auscultation: clear to auscultation bilaterally Cardio: Rate: regular rate Rhythm: regular rhythm GI: GI Palp: Yes Soft to palpation Auscultation: normal bowel sounds : Other: the PEG tube is functioning well Skin: General skin exam: normal color and no rashes or lesions noted Neuro: Other: patient is awake and alert well oriented dysarthria is much better is still continues to have dysphagia however has improving right hemiparesis Extrem: General: normal to inspection Psych: Mental Status: mental status grossly normal Objective Data Vital Signs Vital Signs: Vital Signs - 24 hr 07/21/19 14:00 07/21/19 18:39 07/21/19 22:00 Temperature 36.6 C 36.7 C Pulse Rate 68 68 59 L Respiratory Rate 18 18 Blood Pressure 109/67 93/63 L Pulse Oximetry 96 99 07/22/19 06:00 Temperature 36.5 C Pulse Rate 55 L Respiratory Rate 18 Blood Pressure 95/46 L Pulse Oximetry 96 Intake/Output Intake/Output: Intake & Output 07/19/19 07/20/19 07/21/19 07/22/19 23:59 23:59 23:59 23:59 Intake Total 1568 1000 2040 1020 Output Total 1150 1700 2400 Balance 418 -095 -360 1020 Meds/Results Medications: Active Medications Generic Name Dose Route Start Last Admin Trade Name Freq PRN Reason Stop Dose Admin Hydrocodone Bitart/Acetaminophen 1 tab 07/15/19 17:00 07/22/19 08:36 [place] 7.5-325 Mg FEED TUBE 1 tab BID JIMMIE Administration Aspirin 81 mg 07/16/19 09:00 07/22/19 08:28 Aspirin Chewable FEED TUBE 81 mg DAILY JIMMIE Administration Atorvastatin Calcium 40 mg 07/16/19 09:00 07/22/19 08:28 Lipitor PO 40 mg DAILY JIMMIE Administration Bisacodyl 10 mg 07/15/19 16:25 Dulcolax Suppository RECTAL DAILY PRN Constipation Carvedilol 25 mg 07/16/19 09:00 07/22/19 08:29 Coreg FEED TUBE 25 mg BID JIMMIE Administration Chlorthalidone 25 mg 07/16/19 09:00 07/22/19 08:29 [place] FEED TUBE 25 mg DAILY JIMMIE Administration Clopidogrel Bisulfate 75 mg 07/16/19 09:00 07/22/19 08:30 Plavix FEED TUBE 75 mg DAILY JIMMIE Administration Dextrose 12.5 gm 07/15/19 16:19 Dextrose 50% Syringe IV PUSH PRN PRN Hypoglycemia Protocol Docusate Sodium 100 mg 07/16/19 09:00 07/22/19 08:30 Colace Liquid FEED TUBE 100 mg DAILY [facility] Administration Enoxaparin Sodium 40 mg 07/16/19 21:00 07/21/19 20:49 Lovenox SUB-Q 40 mg HS [facility] Administration Fentanyl 12 mcg 07/16/19 09:00 Duragesic 12 Mcg Patch TRANSDERM Q72H [facility] Ferrous Sulfate 324 mg 07/16/19 08:00 07/22/19 08:28 Ferrous Sulfate PO 324 mg DAILY@0800 [facility] Administration Gabapentin 300 mg 07/15/19 17:00 07/22/19 08:30 Neurontin PO 300 mg TID [facility] Administration Glucagon 1 mg 07/15/19 16:19 Glucagon For Inj IM PRN PRN Hypoglycemia Protocol Glucose 15 gm 07/15/19 17:55 Glutose 15 FEED TUBE PRN PRN Hypoglycemia Protoc
[2019-07-22 12:50] LABS: Glucose Point of Care 180 (65-105)
--- NOTE | 2019-07-22 13:33 | PCDIET ---
Nutrition Follow-Up Complete: Nutrition Diagnosis: Inadequate oral intake related to dysphagia as evidenced by need for g-tube feedings. Nutrition Goal: Patient to meet estimated nutritional needs. Goal met. Patient tolerating Glucerna 1.2 bolus feedings: 360mL every 6 hours with 150mL water flush every 6 hours. Patient denies c/o at this time. Denies issue with tube feeding. Remains NPO. Last recorded weight is 84 kg. Recommend obtaining new weight. Bowel Motility: +BM today. Labs Reviewed: Glu (122) Meds Noted: Colace, Novolog, Fentanyl, Lantus, Ferrous Sulfate Additional Notes: No documented pressure sores. Will continue to monitor with same goals. Nutrition Monitoring and Evaluation: Follow up every Thursday/Thursday.
[2019-07-22 14:00] VITALS: BP 101/53; PULSE 68; RESP 18; TEMP 36.6; O2SAT 98
[2019-07-22 17:15] LABS: Glucose Point of Care 133 (65-105)
[2019-07-22] MEDS: ENOXAPARIN 40 MG/0.4 ML SYRINGE SUB-Q (20:53)
[2019-07-22 22:00] VITALS: BP 85/45; PULSE 67; RESP 16; TEMP 37.1; O2SAT 97
[2019-07-22 22:01] LABS: Glucose Point of Care 162 (65-105)
[2019-07-23 00:39] LABS: Glucose Point of Care 138 (65-105)
[2019-07-23 05:45] LABS: Basophils Absolute Auto 0.1 K/mm3 (0.0-0.1); Basophils Percent Auto 1.1 % (0.2-1.2); Eosinophils Absolute Auto 0.4 K/mm3 (0-0.3); Eosinophils Percent Auto 7.4 % (0-4.4); Hematocrit 41.8 % (42.0-52.0); Hemoglobin 13.5 g/dL (14.0-18.0); Immature Granulocyte Absolute 0.02 K/mm3 (0.00-0.031); Immature Granulocyte Percent A 0.4 % (0-0.5); Lymphocytes Percent Auto 43.3 % (18.3-44.2); Mean Corpuscular HGB Conc 32.3 g/dl (32-36); Mean Corpuscular Hemoglobin 29.3 pg (26-34); Mean Corpuscular Volume 90.7 fl (80-100); Mean Platelet Volume 11.4 fl (7.4-10.4); Monocytes Absolute Auto 0.5 K/mm3 (0.1-0.6); Monocytes Percent Auto 8.7 % (2.6-8.5); Neutrophils Absolute Auto 2.2 K/mm3 (1.3-6.7); Neutrophils Percent Auto 39.1 % (45.5-73.1); Platelet Count Result 289 k/mm3 (150-375); Red Blood Count 4.61 M/mm3 (4.6-6.20); White Blood Count 5.5 K/mm3 (4.5-10.0)
[2019-07-23 05:55] LABS: Blood Urea Nitrogen 38 mg/dL (9-20); Calcium 9.1 mg/dL (8.4-10.2); Carbon Dioxide 34 mmol/L (22-30); Chloride 92 mmol/L (98-107); Estimated CRCL calculation 76 ml/min; Estimated Glomerular Filt Rate > 60; Glucose 133 mg/dL (75-110); Sodium 132 mmol/L (137-145)
[2019-07-23 06:00] VITALS: BP 90/54; PULSE 56; RESP 18; TEMP 36.2; O2SAT 96
[2019-07-23] MEDS: FERROUS SULFATE 324 MG TABLET PO (09:45)
[2019-07-23] MEDS: ATORVASTATIN 40 MG TABLET PO (09:45)
[2019-07-23] MEDS: ASPIRIN 81 MG CHEWABLE TABLET FEED TUBE (09:45)
[2019-07-23] MEDS: GABAPENTIN 300 MG CAPSULE PO ×3 (09:46→18:02)
[2019-07-23] MEDS: DOCUSATE SODIUM LIQ 100 MG/10 ML UDC FEED TUBE (09:46)
[2019-07-23] MEDS: lisinopriL 20 MG TABLET 40 MG FEED TUBE (09:46)
[2019-07-23] MEDS: CHLORTHALIDONE 25 MG TABLET FEED TUBE (09:46)
[2019-07-23] MEDS: CLOPIDOGREL BISULFATE 75 MG TABLET FEED TUBE (09:46)
[2019-07-23] MEDS: NYSTATIN 100,000 UNITS/ML SUSP 5 ML ORAL.SUSP PO ×4 (09:46→21:17)
[2019-07-23] MEDS: INSULIN GLARGINE (*BKC) 100 UNITS/ML 35 UNITS SUB-Q ×2 (09:49→18:02)
[2019-07-23 09:54] VITALS: PULSE 70
[2019-07-23] MEDS: carvediloL 25 MG TABLET FEED TUBE ×2 (09:54→18:02)
[2019-07-23 12:31] LABS: Glucose Point of Care 129 (65-105)
[2019-07-23 14:00] VITALS: BP 104/52; PULSE 55; RESP 18; TEMP 36.2; O2SAT 99
--- NOTE | 2019-07-23 16:42 | WPDNEURORHBP ---
Subjective Date/time seen: 07/23/19 16:42 Interval history: this 58-year-old gentleman is here after having had a brainstem stroke and possibly have had the previous strokes also his improving left-sided hemiparesis more so than the right-sided hemiparesis he denies any new symptoms he still has dysphagia and be fed with the G-tube he denies complain of any GI symptoms along with no complaints of headache nausea vomiting fever chills sore throat Review of Systems Review of Systems: All systems reviewed & are unremarkable except as noted in HPI and below Functional Status Ambulation Ability Ability to Ambulate 10 Feet: Moderate Assistance X 1 Ambulation Assistive Devices: Walker, Wheeled Transfers Ability Ability to Transfer In/Out of Chair: Moderate Assistance X 1 Exam Const: General: comfortable and no acute distress HENMT: General nose exam: Normal nares present Mouth: Yes moist mucous membranes Eyes: General: appearance normal, both eyes and all related structures Neck: Neck: supple and no JVD Resp: Effort & Inspection: normal respiratory effort Auscultation: clear to auscultation bilaterally Cardio: Rate: regular rate Rhythm: regular rhythm GI: GI Palp: Yes Soft to palpation Auscultation: normal bowel sounds Other: the PEG tube is functioning well Skin: General skin exam: normal color and no rashes or lesions noted Neuro: Other: patient is awake and alert well oriented dysphagia remains the same and improving left more than the right-sided hemiparesis Extrem: General: normal to inspection Psych: Mental Status: mental status grossly normal Objective Data Vital Signs Vital Signs: Vital Signs - 24 hr 07/22/19 22:00 07/23/19 06:00 07/23/19 09:54 Temperature 37.1 C 36.2 C L Pulse Rate 67 56 L 70 Respiratory Rate 16 18 Blood Pressure 85/45 L 90/54 L Pulse Oximetry 97 96 07/23/19 14:00 Temperature 36.2 C L Pulse Rate 55 L Respiratory Rate 18 Blood Pressure 104/52 L Pulse Oximetry 99 Intake/Output Intake/Output: Intake & Output 07/20/19 07/21/19 07/22/19 07/23/19 23:59 23:59 23:59 23:59 Intake Total 1000 2040 1020 Output Total 1700 2400 650 Balance -700 -360 370 Meds/Results Medications: Active Medications Generic Name Dose Route Start Last Admin Trade Name Freq PRN Reason Stop Dose Admin Hydrocodone Bitart/Acetaminophen 1 tab 07/15/19 17:00 07/23/19 09:48 [place] 7.5-325 Mg FEED TUBE 1 tab BID JIMMIE Administration Aspirin 81 mg 07/16/19 09:00 07/23/19 09:45 Aspirin Chewable FEED TUBE 81 mg DAILY JIMMIE Administration Atorvastatin Calcium 40 mg 07/16/19 09:00 07/23/19 09:45 Lipitor PO 40 mg DAILY JIMMIE Administration Bisacodyl 10 mg 07/15/19 16:25 Dulcolax Suppository RECTAL DAILY PRN Constipation Carvedilol 25 mg 07/16/19 09:00 07/23/19 09:54 Coreg FEED TUBE 25 mg BID JIMMIE Administration Chlorthalidone 25 mg 07/16/19 09:00 07/23/19 09:46 [place] FEED TUBE 25 mg DAILY JIMMIE Administration Clopidogrel Bisulfate 75 mg 07/16/19 09:00 07/23/19 09:46 Plavix FEED TUBE 75 mg DAILY JIMMIE Administration Dextrose 12.5 gm 07/15/19 16:19 Dextrose 50% Syringe IV PUSH PRN PRN Hypoglycemia Protocol Docusate Sodium 100 mg 07/16/19 09:00 07/23/19 09:46 Colace Liquid FEED TUBE 100 mg DAILY JIMMIE Administration Enoxaparin Sodium 40 mg 07/16/19 21:00 07/22/19 20:53 Lovenox SUB-Q 40 mg HS JIMMIE Administration Fentanyl 12 mcg 07/16/19 09:00 Duragesic 12 Mcg Patch TRANSDERM Q72H [facility] Ferrous Sulfate 324 mg 07/16/19 08:00 07/23/19 09:45 Ferrous Sulfate PO 324 mg DAILY@0800 JIMMIE Administration Gabapentin 300 mg 07/15/19 17:00 07/23/19 12:52 Neurontin PO 300 mg TID JIMMIE Administration Glucagon 1 mg 07/15/19 16:19 Glucagon For Inj IM PRN PRN Hypoglycemia Protocol Glucose 15 gm 07/15/19 17:55 Glutose 15 FEED TU
[2019-07-23 17:18] LABS: Glucose Point of Care 139 (65-105)
[2019-07-23 18:02] VITALS: PULSE 55
[2019-07-23] MEDS: ENOXAPARIN 40 MG/0.4 ML SYRINGE SUB-Q (21:17)
[2019-07-23 22:00] VITALS: BP 96/54; PULSE 56; RESP 17; TEMP 36.6; O2SAT 98
[2019-07-24 01:12] LABS: Glucose Point of Care 97 (65-105)
[2019-07-24 06:00] VITALS: BP 91/54; PULSE 65; RESP 18; TEMP 37.2; O2SAT 98
[2019-07-24 06:37] LABS: Glucose Point of Care 113 (65-105)
[2019-07-24] MEDS: FERROUS SULFATE 324 MG TABLET PO (09:46)
[2019-07-24] MEDS: ATORVASTATIN 40 MG TABLET PO (09:46)
[2019-07-24] MEDS: ASPIRIN 81 MG CHEWABLE TABLET FEED TUBE (09:46)
[2019-07-24 09:47] VITALS: PULSE 65
[2019-07-24] MEDS: CLOPIDOGREL BISULFATE 75 MG TABLET FEED TUBE (09:47)
[2019-07-24] MEDS: NYSTATIN 100,000 UNITS/ML SUSP 5 ML ORAL.SUSP PO ×4 (09:47→23:49)
[2019-07-24] MEDS: GABAPENTIN 300 MG CAPSULE PO ×3 (09:47→19:15)
[2019-07-24] MEDS: DOCUSATE SODIUM LIQ 100 MG/10 ML UDC FEED TUBE (09:47)
[2019-07-24] MEDS: CHLORTHALIDONE 25 MG TABLET FEED TUBE (09:47)
[2019-07-24] MEDS: carvediloL 25 MG TABLET FEED TUBE ×2 (09:47→19:15)
[2019-07-24] MEDS: lisinopriL 20 MG TABLET 40 MG FEED TUBE (09:48)
[2019-07-24] MEDS: INSULIN GLARGINE (*BKC) 100 UNITS/ML 35 UNITS SUB-Q ×2 (09:49→19:18)
[2019-07-24 12:28] LABS: Glucose Point of Care 146 (65-105)
[2019-07-24 14:00] VITALS: BP 126/65; PULSE 53; RESP 18; TEMP 36.6; O2SAT 98
[2019-07-24 17:33] LABS: Glucose Point of Care 93 (65-105)
--- NOTE | 2019-07-24 17:55 | WPDNEURORHBP ---
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 hemiparesis much more pronounced than the right hemiparesis and also dysphagia for which she is on PEG tube he is making progress and improving overall however he will need swallowing study next week so that we can assess whether not weakness start him at least some kind of oral feeding he denies any headache nausea vomiting chest pain shortness of breath fever chills sore throat Review of Systems Review of Systems: All systems reviewed & are unremarkable except as noted in HPI and below Functional Status Ambulation Ability Ability to Ambulate 10 Feet: Moderate Assistance X 1 Ambulation Assistive Devices: Walker, Wheeled Transfers Ability Ability to Transfer In/Out of Chair: Moderate Assistance X 1 Exam Const: General: comfortable and no acute distress HENMT: General nose exam: Normal nares present Mouth: Yes moist mucous membranes Eyes: General: appearance normal, both eyes and all related structures Neck: Neck: supple and no JVD Resp: Effort & Inspection: normal respiratory effort Auscultation: clear to auscultation bilaterally Cardio: Rate: regular rate Rhythm: regular rhythm GI: GI Palp: Yes Soft to palpation Auscultation: normal bowel sounds Other: PEG tube is functioning well no sign of infection Skin: General skin exam: normal color and no rashes or lesions noted Neuro: Other: patient is speech and language function are normal cranial examinations are normal he has left more than the right hemiparesis and improving overall Extrem: General: normal to inspection Psych: Mental Status: mental status grossly normal Objective Data Vital Signs Vital Signs: Vital Signs - 24 hr 07/23/19 18:02 07/23/19 22:00 07/24/19 06:00 Temperature 36.6 C 37.2 C Pulse Rate 55 L 56 L 65 Respiratory Rate 17 18 Blood Pressure 96/54 L 91/54 L Pulse Oximetry 98 98 07/24/19 09:47 07/24/19 14:00 Temperature 36.6 C Pulse Rate 65 53 L Respiratory Rate 18 Blood Pressure 126/65 Pulse Oximetry 98 Intake/Output Intake/Output: Intake & Output 07/21/19 07/22/19 07/23/19 07/24/19 23:59 23:59 23:59 23:59 Intake Total 2040 1020 1120 1265 Output Total 2400 650 2350 Balance -360 370 1230 1265 Meds/Results Medications: Active Medications Generic Name Dose Route Start Last Admin Trade Name Freq PRN Reason Stop Dose Admin Hydrocodone Bitart/Acetaminophen 1 tab 07/15/19 17:00 07/24/19 09:51 [place] 7.5-325 Mg FEED TUBE 1 tab BID JIMMIE Administration Aspirin 81 mg 07/16/19 09:00 07/24/19 09:46 Aspirin Chewable FEED TUBE 81 mg DAILY JIMMIE Administration Atorvastatin Calcium 40 mg 07/16/19 09:00 07/24/19 09:46 Lipitor PO 40 mg DAILY JIMMIE Administration Bisacodyl 10 mg 07/15/19 16:25 Dulcolax Suppository RECTAL DAILY PRN Constipation Carvedilol 25 mg 07/16/19 09:00 07/24/19 09:47 Coreg FEED TUBE 25 mg BID JIMMIE Administration Chlorthalidone 25 mg 07/16/19 09:00 07/24/19 09:47 [place] FEED TUBE 25 mg DAILY JIMMIE Administration Clopidogrel Bisulfate 75 mg 07/16/19 09:00 07/24/19 09:47 Plavix FEED TUBE 75 mg DAILY JIMMIE Administration Dextrose 12.5 gm 07/15/19 16:19 Dextrose 50% Syringe IV PUSH PRN PRN Hypoglycemia Protocol Docusate Sodium 100 mg 07/16/19 09:00 07/24/19 09:47 Colace Liquid FEED TUBE 100 mg DAILY JIMMIE Administration Enoxaparin Sodium 40 mg 07/16/19 21:00 07/23/19 21:17 Lovenox SUB-Q 40 mg HS JIMMIE Administration Fentanyl 12 mcg 07/16/19 09:00 Duragesic 12 Mcg Patch TRANSDERM Q72H [facility] Ferrous Sulfate 324 mg 07/16/19 08:00 07/24/19 09:46 Ferrous Sulfate PO 324 mg DAILY@0800 JIMMIE Administration Gabapentin 300 mg 07/15/19 17:00 07/24/19 14:58 Neurontin PO 300 mg TID
[2019-07-24 19:15] VITALS: PULSE 53
[2019-07-24] MEDS: ENOXAPARIN 40 MG/0.4 ML SYRINGE SUB-Q (21:00)
[2019-07-24 21:38] VITALS: BP 88/56; PULSE 51; RESP 16; TEMP 36.8; O2SAT 92
[2019-07-25 00:10] LABS: Glucose Point of Care 123 (65-105)
[2019-07-25 06:00] VITALS: BP 99/61; PULSE 58; RESP 16; TEMP 36.8; O2SAT 97
[2019-07-25 06:32] LABS: Glucose Point of Care 116 (65-105)
[2019-07-25 08:00] VITALS: PULSE 67; RESP 18; O2SAT 98
[2019-07-25] MEDS: GABAPENTIN 300 MG CAPSULE PO ×3 (10:01→18:03)
[2019-07-25] MEDS: lisinopriL 20 MG TABLET 40 MG FEED TUBE (10:01)
[2019-07-25 10:02] VITALS: PULSE 62
[2019-07-25] MEDS: DOCUSATE SODIUM LIQ 100 MG/10 ML UDC FEED TUBE (10:02)
[2019-07-25] MEDS: FERROUS SULFATE 324 MG TABLET PO (10:02)
[2019-07-25] MEDS: CHLORTHALIDONE 25 MG TABLET FEED TUBE (10:02)
[2019-07-25] MEDS: carvediloL 25 MG TABLET FEED TUBE ×2 (10:02→18:03)
[2019-07-25] MEDS: NYSTATIN 100,000 UNITS/ML SUSP 5 ML ORAL.SUSP PO ×4 (10:02→19:57)
[2019-07-25] MEDS: ASPIRIN 81 MG CHEWABLE TABLET FEED TUBE (10:03)
[2019-07-25] MEDS: ATORVASTATIN 40 MG TABLET PO (10:03)
[2019-07-25] MEDS: CLOPIDOGREL BISULFATE 75 MG TABLET FEED TUBE ×2 (10:03→10:13)
[2019-07-25] MEDS: INSULIN GLARGINE (*BKC) 100 UNITS/ML 35 UNITS SUB-Q ×2 (10:13→18:07)
--- NOTE | 2019-07-25 11:02 | WPDNEURORHBP ---
Subjective Date/time seen: s/p left medullary stroke with DM,hypertension, Hyperlipidemia and never smoker left with quadroparesis though left >right is on tube [id number]/15/20 11:02 Functional Status Ambulation Ability Ability to Ambulate 10 Feet: Moderate Assistance X 1 Ambulation Assistive Devices: Walker, Wheeled Transfers Ability Ability to Transfer In/Out of Chair: Moderate Assistance X 1 Exam Const: General: no acute distress HENMT: Ears: hearing grossly normal bilaterally General nose exam: Normal external nose present and No nasal discharge present Eyes: General: appearance normal, both eyes and all related structures Neck: Neck: full ROM Resp: Effort & Inspection: normal respiratory effort Auscultation: clear to auscultation bilaterally Cardio: Rate: regular rate Rhythm: regular rhythm GI: Inspection: normal to inspection Percussion: Yes normal to percussion Auscultation: normal bowel sounds Skin: General skin exam: no rashes or lesions noted and other (peg clean) Lesions: no lesions Rashes: no rashes Neuro: General: patient oriented x3 Motor exam (neuro): 5/5 motor strength present throughout (quadroparesis left>right) Extrem: General: normal to inspection Psych: Appearance: grossly normal Objective Data Vital Signs Vital Signs: Vital Signs - 24 hr 07/24/19 14:00 07/24/19 19:15 07/24/19 21:38 Temperature 36.6 C 36.8 C Pulse Rate 53 L 53 L 51 L Respiratory Rate 18 16 Blood Pressure 126/65 88/56 L Pulse Oximetry 98 92 07/25/19 06:00 07/25/19 10:02 Temperature 36.8 C Pulse Rate 58 L 62 Respiratory Rate 16 Blood Pressure 99/61 L Pulse Oximetry 97 Intake/Output Intake/Output: Intake & Output 07/22/19 07/23/19 07/24/19 07/25/19 23:59 23:59 23:59 23:59 Intake Total 1020 1120 1265 Output Total 650 2350 1600 300 Balance 988 -8765 -335 -300 Meds/Results Medications: Active Medications Generic Name Dose Route Start Last Admin Trade Name Freq PRN Reason Stop Dose Admin Hydrocodone Bitart/Acetaminophen 1 tab 07/15/19 17:00 07/25/19 10:13 [place] 7.5-325 Mg FEED TUBE 1 tab BID JIMMIE Administration Aspirin 81 mg 07/16/19 09:00 06/15/20 10:03 Aspirin Chewable FEED TUBE 81 mg DAILY JIMMIE Administration Atorvastatin Calcium 40 mg 07/16/19 09:00 07/25/19 10:03 Lipitor PO 40 mg DAILY JIMMIE Administration Bisacodyl 10 mg 07/15/19 16:25 Dulcolax Suppository RECTAL DAILY PRN Constipation Carvedilol 25 mg 07/16/19 09:00 07/25/19 10:02 Coreg FEED TUBE 25 mg BID JIMMIE Administration Chlorthalidone 25 mg 07/16/19 09:00 07/25/19 10:02 [place] FEED TUBE 25 mg DAILY JIMMIE Administration Clopidogrel Bisulfate 75 mg 07/16/19 09:00 07/25/19 10:13 Plavix FEED TUBE 75 mg DAILY JIMMIE Administration Dextrose 12.5 gm 07/15/19 16:19 Dextrose 50% Syringe IV PUSH PRN PRN Hypoglycemia Protocol Docusate Sodium 100 mg 07/16/19 09:00 07/25/19 10:02 Colace Liquid FEED TUBE 100 mg DAILY JIMMIE Administration Enoxaparin Sodium 40 mg 07/16/19 21:00 07/24/19 21:00 Lovenox SUB-Q 40 mg HS [facility] Administration Fentanyl 12 mcg 07/16/19 09:00 Duragesic 12 Mcg Patch TRANSDERM Q72H [facility] Ferrous Sulfate 324 mg 07/16/19 08:00 07/25/19 10:02 Ferrous Sulfate PO 324 mg DAILY@0800 [facility] Administration Gabapentin 300 mg 07/15/19 17:00 07/25/19 10:01 Neurontin PO 300 mg TID JIMMIE Administration Glucagon 1 mg 07/15/19 16:19 Glucagon For Inj IM PRN PRN Hypoglycemia Protocol Glucose 15 gm 07/15/19 17:55 Glutose 15 FEED TUBE PRN PRN Hypoglycemia Protocol Dextrose 1,000 mls @ 100 mls/hr 07/15/19 16:19 Dextrose 5% 1,000 Ml IVPB PRN PRN Hypoglycemia Protocol Insulin Aspart 3 - 6 units 07/15/19 18:00 07/25/19 06:00 Novolog SUB-Q Not Given Q6HR [facility] Protocol Insulin Glargine 35 units
[2019-07-25 12:11] LABS: Glucose Point of Care 143 (65-105)
[2019-07-25 14:00] VITALS: BP 132/76; PULSE 67; RESP 18; TEMP 36.5; O2SAT 98
[2019-07-25 18:03] VITALS: PULSE 67
[2019-07-25 18:14] LABS: Glucose Point of Care 100 (65-105)
[2019-07-25] MEDS: ENOXAPARIN 40 MG/0.4 ML SYRINGE SUB-Q (19:57)
[2019-07-25 22:00] VITALS: BP 99/63; PULSE 54; RESP 17; TEMP 36.6; O2SAT 99
[2019-07-26 00:27] LABS: Glucose Point of Care 95 (65-105)
[2019-07-26 05:49] LABS: Glucose Point of Care 110 (65-105)
[2019-07-26 06:00] VITALS: BP 98/61; PULSE 53; RESP 17; TEMP 36.7; O2SAT 94
[2019-07-26 11:32] LABS: Glucose Point of Care 104 (65-105)
--- NOTE | 2019-07-26 12:34 | PCDIET ---
Nutrition Follow-Up Complete: Nutrition Diagnosis: Inadequate oral intake related to dysphagia as evidenced by need for g-tube feedings. Nutrition Goal: Patient to meet estimated nutritional needs. Goal met. Patient tolerating bolus feedings: Glucerna 1.2 360mL every 6 hours with 150mL water flush every 6 hours. Patient denies c/o or concerns. MBS being scheduled. Last recorded weight is 84 kg. Recommend obtaining new weight. Bowel Motility: +BM today. Labs Reviewed: Glu (104) Meds Noted: Colace, Fentanyl, Ferrous Sulfate, Novolog, Lantus Additional Notes: No documented skin breakdown (other than g-tube site). Will continue to monitor with same goal. May recommend adjusting tube feedings based on results of upcoming MBS. Nutrition Monitoring and Evaluation: Follow up every Thursday/Thursday.
[2019-07-26 12:43] VITALS: PULSE 53
[2019-07-26] MEDS: ASPIRIN 81 MG CHEWABLE TABLET FEED TUBE (12:43)
[2019-07-26] MEDS: ATORVASTATIN 40 MG TABLET PO (12:43)
[2019-07-26] MEDS: FERROUS SULFATE 324 MG TABLET PO (12:43)
[2019-07-26] MEDS: carvediloL 25 MG TABLET FEED TUBE ×2 (12:43→16:56)
[2019-07-26] MEDS: DOCUSATE SODIUM LIQ 100 MG/10 ML UDC FEED TUBE (12:44)
[2019-07-26] MEDS: GABAPENTIN 300 MG CAPSULE PO ×3 (12:44→19:12)
[2019-07-26] MEDS: lisinopriL 20 MG TABLET 40 MG FEED TUBE (12:44)
[2019-07-26] MEDS: NYSTATIN 100,000 UNITS/ML SUSP 5 ML ORAL.SUSP PO ×4 (12:44→21:58)
[2019-07-26] MEDS: CHLORTHALIDONE 25 MG TABLET FEED TUBE (12:44)
[2019-07-26] MEDS: INSULIN GLARGINE (*BKC) 100 UNITS/ML 35 UNITS SUB-Q ×2 (12:49→19:10)
[2019-07-26 14:00] VITALS: BP 121/60; PULSE 72; RESP 18; TEMP 36.7; O2SAT 99
--- NOTE | 2019-07-26 14:36 | WPDNEURORHBP ---
Subjective Date/time seen: 07/26/19 14:36 Interval history: this is a 58-year-old who is here because of brainstem stroke with the significant left more than right-sided weakness and also has underlying chronic pain on his left side which his concurs during the team conference the patient denies any headache nausea vomiting chest pain shortness of breath fever chills sore throat For a he will need above modified barium swallow sometimes this week to see if there is any improvement overall prior to him being discharged and tentative discharge planning on August 07, 2019 Review of Systems Review of Systems: All systems reviewed & are unremarkable except as noted in HPI and below Functional Status Ambulation Ability Ability to Ambulate 10 Feet: Minimum Assistance X 1 Ambulation Assistive Devices: Walker, Wheeled Transfers Ability Ability to Transfer In/Out of Chair: Moderate Assistance X 1 Exam Const: General: comfortable and no acute distress HENMT: General nose exam: Normal nares present Mouth: Yes moist mucous membranes Eyes: General: appearance normal, both eyes and all related structures Neck: Neck: supple and no JVD Resp: Effort & Inspection: normal respiratory effort Auscultation: clear to auscultation bilaterally Cardio: Rate: regular rate Rhythm: regular rhythm GI: GI Palp: Yes Soft to palpation Auscultation: normal bowel sounds Skin: General skin exam: normal color and no rashes or lesions noted Neuro: Other: patient is awake alert well oriented with significant improvement in his dysarthria however still needs lot of therapy for his left more than the right-sided weakness Extrem: General: normal to inspection Psych: Mental Status: mental status grossly normal Objective Data Vital Signs Vital Signs: Vital Signs - 24 hr 07/25/19 18:03 07/25/19 22:00 07/26/19 06:00 Temperature 36.6 C 36.7 C Pulse Rate 67 54 L 53 L Respiratory Rate 17 17 Blood Pressure 99/63 L 98/61 L Pulse Oximetry 99 94 07/26/19 12:43 07/26/19 14:00 Temperature 36.7 C Pulse Rate 53 L 72 Respiratory Rate 18 Blood Pressure 121/60 Pulse Oximetry 99 Intake/Output Intake/Output: Intake & Output 07/23/19 07/24/19 07/25/19 07/26/19 23:59 23:59 23:59 23:59 Intake Total 1120 1265 1020 Output Total 2350 1600 900 600 Balance -1230 -105 -900 420 Meds/Results Medications: Active Medications Generic Name Dose Route Start Last Admin Trade Name Freq PRN Reason Stop Dose Admin Hydrocodone Bitart/Acetaminophen 1 tab 07/15/19 17:00 07/26/19 12:48 [place] 7.5-325 Mg FEED TUBE 1 tab BID JIMMIE Administration Aspirin 81 mg 07/16/19 09:00 07/26/19 12:43 Aspirin Chewable FEED TUBE 81 mg DAILY JIMMIE Administration Atorvastatin Calcium 40 mg 07/16/19 09:00 07/26/19 12:43 Lipitor PO 40 mg DAILY JIMMIE Administration Bisacodyl 10 mg 07/15/19 16:25 Dulcolax Suppository RECTAL DAILY PRN Constipation Carvedilol 25 mg 07/16/19 09:00 07/26/19 12:43 Coreg FEED TUBE 25 mg BID JIMMIE Administration Chlorthalidone 25 mg 07/16/19 09:00 07/26/19 12:44 [place] FEED TUBE 25 mg DAILY JIMMIE Administration Clopidogrel Bisulfate 75 mg 07/16/19 09:00 07/25/19 10:13 Plavix FEED TUBE 75 mg DAILY JIMMIE Administration Dextrose 12.5 gm 07/15/19 16:19 Dextrose 50% Syringe IV PUSH PRN PRN Hypoglycemia Protocol Docusate Sodium 100 mg 07/16/19 09:00 07/26/19 12:44 Colace Liquid FEED TUBE 100 mg DAILY JIMMIE Administration Enoxaparin Sodium 40 mg 07/16/19 21:00 07/25/19 19:57 Lovenox SUB-Q 40 mg HS JIMMIE Administration Fentanyl 12 mcg 07/16/19 09:00 Duragesic 12 Mcg Patch TRANSDERM Q72H [facility] Ferrous Sulfate 324 mg 07/16/19 08:00 07/26/19 12:43 Ferrous Sulfate PO 324 mg DAILY@0800 JIMMIE Administration Gabapentin 300 mg 07/15/19 17:00 07/26/19 12:44 Neurontin PO 300 mg TID JIMMIE Administration Gl
[2019-07-26 16:56] VITALS: PULSE 72
[2019-07-26 17:36] LABS: Glucose Point of Care 147 (65-105)
[2019-07-26] MEDS: ENOXAPARIN 40 MG/0.4 ML SYRINGE SUB-Q (21:58)
[2019-07-26 22:00] VITALS: BP 95/54; PULSE 52; RESP 18; TEMP 36.1; O2SAT 96
[2019-07-27 05:56] LABS: Glucose Point of Care 74 (65-105)
[2019-07-27 06:00] VITALS: BP 96/68; PULSE 59; RESP 18; TEMP 35.5; O2SAT 97
[2019-07-27] MEDS: ASPIRIN 81 MG CHEWABLE TABLET FEED TUBE (08:55)
[2019-07-27] MEDS: FERROUS SULFATE 324 MG TABLET PO (08:55)
[2019-07-27 08:56] VITALS: PULSE 59
[2019-07-27] MEDS: ATORVASTATIN 40 MG TABLET PO (08:56)
[2019-07-27] MEDS: carvediloL 25 MG TABLET FEED TUBE ×2 (08:56→18:54)
[2019-07-27] MEDS: CLOPIDOGREL BISULFATE 75 MG TABLET FEED TUBE (08:56)
[2019-07-27] MEDS: CHLORTHALIDONE 25 MG TABLET FEED TUBE (08:56)
[2019-07-27] MEDS: lisinopriL 20 MG TABLET 40 MG FEED TUBE (08:57)
[2019-07-27] MEDS: GABAPENTIN 300 MG CAPSULE PO ×3 (08:57→18:54)
[2019-07-27] MEDS: DOCUSATE SODIUM LIQ 100 MG/10 ML UDC FEED TUBE (08:57)
[2019-07-27] MEDS: NYSTATIN 100,000 UNITS/ML SUSP 5 ML ORAL.SUSP PO ×4 (08:58→22:24)
[2019-07-27] MEDS: INSULIN GLARGINE (*BKC) 100 UNITS/ML 35 UNITS SUB-Q ×2 (08:58→18:54)
[2019-07-27 12:07] LABS: Glucose Point of Care 99 (65-105)
[2019-07-27] MEDS: allopurinoL 300 MG TABLET PO (13:29)
[2019-07-27 14:00] VITALS: BP 105/57; PULSE 59; RESP 16; TEMP 36.6; O2SAT 93
--- NOTE | 2019-07-27 15:07 | WPDNEURORHBP ---
Subjective Date/time seen: 07/27/19 15:07 Interval history: this 58-year-old is here after having an apparent distress stroke which has left him in the left-sided hemiparesis more so than the right-sided weakness is improving quite a bit remains with dysphagia and the tube feeding which he is tolerating overall he is stable denying any headache nausea vomiting chest pain shortness of breath fever chills sore throat Review of Systems Review of Systems: All systems reviewed & are unremarkable except as noted in HPI and below Functional Status Ambulation Ability Ability to Ambulate 10 Feet: Moderate Assistance X 1 Ambulation Assistive Devices: Railings Transfers Ability Ability to Transfer In/Out of Chair: Moderate Assistance X 1 Exam Const: General: comfortable and no acute distress HENMT: General nose exam: Normal nares present Mouth: Yes moist mucous membranes Eyes: General: appearance normal, both eyes and all related structures Neck: Neck: supple and no JVD Resp: Effort & Inspection: normal respiratory effort Auscultation: clear to auscultation bilaterally Cardio: Rate: regular rate Rhythm: regular rhythm GI: GI Palp: Yes Soft to palpation Auscultation: normal bowel sounds Skin: General skin exam: normal color and no rashes or lesions noted Neuro: Other: he is awake and alert well oriented to time place and person has improving neurological deficit Extrem: General: normal to inspection Psych: Mental Status: mental status grossly normal Objective Data Vital Signs Vital Signs: Vital Signs - 24 hr 07/26/19 16:56 07/26/19 22:00 07/27/19 06:00 Temperature 36.1 C L 35.5 C L Pulse Rate 72 52 L 59 L Respiratory Rate 18 18 Blood Pressure 95/54 L 96/68 L Pulse Oximetry 96 97 07/27/19 08:56 Temperature Pulse Rate 59 L Respiratory Rate Blood Pressure Pulse Oximetry Intake/Output Intake/Output: Intake & Output 07/24/19 07/25/19 07/26/19 07/27/19 23:59 23:59 23:59 23:59 Intake Total 1265 1970 0 Output Total 5483 703 0370 1000 Balance -335 -900 720 -1000 Meds/Results Medications: Active Medications Generic Name Dose Route Start Last Admin Trade Name Freq PRN Reason Stop Dose Admin Hydrocodone Bitart/Acetaminophen 1 tab 07/15/19 17:00 06/17/20 08:57 [place] 7.5-325 Mg FEED TUBE 1 tab BID JIMMIE Administration Allopurinol 300 mg 07/27/19 12:00 07/27/19 13:29 Zyloprim PO 300 mg DAILY@0800 JIMMIE Administration Aspirin 81 mg 07/16/19 09:00 07/27/19 08:55 Aspirin Chewable FEED TUBE 81 mg DAILY JIMMIE Administration Atorvastatin Calcium 40 mg 07/16/19 09:00 07/27/19 08:56 Lipitor PO 40 mg DAILY JIMMIE Administration Bisacodyl 10 mg 07/15/19 16:25 Dulcolax Suppository RECTAL DAILY PRN Constipation Carvedilol 25 mg 07/16/19 09:00 07/27/19 08:56 Coreg FEED TUBE 25 mg BID JIMMIE Administration Chlorthalidone 25 mg 07/16/19 09:00 07/27/19 08:56 [place] FEED TUBE 25 mg DAILY JIMMIE Administration Clopidogrel Bisulfate 75 mg 07/16/19 09:00 07/27/19 08:56 Plavix FEED TUBE 75 mg DAILY JIMMIE Administration Dextrose 12.5 gm 07/15/19 16:19 Dextrose 50% Syringe IV PUSH PRN PRN Hypoglycemia Protocol Docusate Sodium 100 mg 07/16/19 09:00 07/27/19 08:57 Colace Liquid FEED TUBE 100 mg DAILY [facility] Administration Enoxaparin Sodium 40 mg 07/16/19 21:00 07/26/19 21:58 Lovenox SUB-Q 40 mg HS [facility] Administration Fentanyl 12 mcg 07/16/19 09:00 Duragesic 12 Mcg Patch TRANSDERM Q72H [facility] Ferrous Sulfate 324 mg 07/16/19 08:00 07/27/19 08:55 Ferrous Sulfate PO 324 mg DAILY@0800 JIMMIE Administration Gabapentin 300 mg 07/15/19 17:00 07/27/19 13:51 Neurontin PO 300 mg TID JIMMIE Administration Glucagon 1 mg 07/15/19 16:19 Glucagon For Inj IM PRN PRN Hypoglycemia Protocol Glucose 15 gm 07/15/19 17:55 Glutose 15 FEED TUBE
[2019-07-27 17:58] LABS: Glucose Point of Care 129 (65-105)
[2019-07-27 18:54] VITALS: PULSE 59
[2019-07-27 22:00] VITALS: BP 110/65; PULSE 55; RESP 16; TEMP 37; O2SAT 100
[2019-07-27] MEDS: ENOXAPARIN 40 MG/0.4 ML SYRINGE SUB-Q (22:24)
[2019-07-28 00:07] LABS: Glucose Point of Care 108 (65-105)
[2019-07-28 05:34] LABS: Glucose Point of Care 82 (65-105)
[2019-07-28 06:00] VITALS: BP 108/58; PULSE 65; RESP 18; TEMP 36.6; O2SAT 98
[2019-07-28] MEDS: allopurinoL 300 MG TABLET PO (09:28)
[2019-07-28] MEDS: ATORVASTATIN 40 MG TABLET PO (09:28)
[2019-07-28] MEDS: FERROUS SULFATE 324 MG TABLET PO (09:28)
[2019-07-28] MEDS: ASPIRIN 81 MG CHEWABLE TABLET FEED TUBE (09:28)
[2019-07-28 09:29] VITALS: PULSE 65
[2019-07-28] MEDS: DOCUSATE SODIUM LIQ 100 MG/10 ML UDC FEED TUBE (09:29)
[2019-07-28] MEDS: CLOPIDOGREL BISULFATE 75 MG TABLET FEED TUBE (09:29)
[2019-07-28] MEDS: GABAPENTIN 300 MG CAPSULE PO ×3 (09:29→18:29)
[2019-07-28] MEDS: carvediloL 25 MG TABLET FEED TUBE ×2 (09:29→18:31)
[2019-07-28] MEDS: CHLORTHALIDONE 25 MG TABLET FEED TUBE (09:29)
[2019-07-28] MEDS: INSULIN GLARGINE (*BKC) 100 UNITS/ML 35 UNITS SUB-Q ×2 (09:33→18:49)
[2019-07-28] MEDS: lisinopriL 20 MG TABLET 40 MG FEED TUBE (09:33)
[2019-07-28] MEDS: NYSTATIN 100,000 UNITS/ML SUSP 5 ML ORAL.SUSP PO ×4 (09:34→20:17)
--- NOTE | 2019-07-28 11:36 | WPDNEURORHBP ---
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 his doing well with the feet tubing /tube feeding denies any trouble with feeding itself denies any chest pain shortness of breath fever chills sore throat and progressing in the rehab Review of Systems Review of Systems: All systems reviewed & are unremarkable except as noted in HPI and below Functional Status Ambulation Ability Ability to Ambulate 10 Feet: Moderate Assistance X 1 Ambulation Assistive Devices: Railings Transfers Ability Ability to Transfer In/Out of Chair: Moderate Assistance X 1 Exam Const: General: comfortable and no acute distress HENMT: General nose exam: Normal nares present Mouth: Yes moist mucous membranes Eyes: General: appearance normal, both eyes and all related structures Neck: Neck: supple and no JVD Resp: Effort & Inspection: normal respiratory effort Auscultation: clear to auscultation bilaterally Cardio: Rate: regular rate Rhythm: regular rhythm GI: GI Palp: Yes Soft to palpation Auscultation: normal bowel sounds Skin: General skin exam: normal color and no rashes or lesions noted Neuro: Other: awake and alert will oriented time place and person with improving left more than the right-sided hemiparesis however still being fed through the PEG tube because of 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 Extrem: General: normal to inspection Psych: Mental Status: mental status grossly normal Objective Data Vital Signs Vital Signs: Vital Signs - 24 hr 07/27/19 14:00 07/27/19 18:54 07/27/19 22:00 Temperature 36.6 C 37.0 C Pulse Rate 59 L 59 L 55 L Respiratory Rate 16 16 Blood Pressure 105/57 L 110/65 Pulse Oximetry 93 100 07/28/19 06:00 07/28/19 09:29 Temperature 36.6 C Pulse Rate 65 65 Respiratory Rate 18 Blood Pressure 108/58 L Pulse Oximetry 98 Intake/Output Intake/Output: Intake & Output 07/25/19 07/26/19 07/27/19 07/28/19 23:59 23:59 23:59 23:59 Intake Total 1970 1120 1410 Output Total 900 1250 1000 Balance -900 574 760 1971 Meds/Results Medications: Active Medications Generic Name Dose Route Start Last Admin Trade Name Freq PRN Reason Stop Dose Admin Hydrocodone Bitart/Acetaminophen 1 tab 07/15/19 17:00 07/28/19 09:33 [place] 7.5-325 Mg FEED TUBE 1 tab BID JIMMIE Administration Allopurinol 300 mg 07/27/19 12:00 07/28/19 09:28 Zyloprim PO 300 mg DAILY@0800 JIMMIE Administration Aspirin 81 mg 07/16/19 09:00 07/28/19 09:28 Aspirin Chewable FEED TUBE 81 mg DAILY JIMMIE Administration Atorvastatin Calcium 40 mg 07/16/19 09:00 07/28/19 09:28 Lipitor PO 40 mg DAILY JIMMIE Administration Bisacodyl 10 mg 07/15/19 16:25 Dulcolax Suppository RECTAL DAILY PRN Constipation Carvedilol 25 mg 07/16/19 09:00 07/28/19 09:29 Coreg FEED TUBE 25 mg BID JIMMIE Administration Chlorthalidone 25 mg 07/16/19 09:00 07/28/19 09:29 [place] FEED TUBE 25 mg DAILY JIMMIE Administration Clopidogrel Bisulfate 75 mg 07/16/19 09:00 07/28/19 09:29 Plavix FEED TUBE 75 mg DAILY [facility] Administration Dextrose 12.5 gm 07/15/19 16:19 Dextrose 50% Syringe IV PUSH PRN PRN Hypoglycemia Protocol Docusate Sodium 100 mg 07/16/19 09:00 07/28/19 09:29 Colace Liquid FEED TUBE 100 mg DAILY [facility] Administration Enoxaparin Sodium 40 mg 07/16/19 21:00 07/27/19 22:24 Lovenox SUB-Q 40 mg HS [facility] Administration Fentanyl 12 mcg 07/16/19 09:00 Dur[place] 12 Mcg Patch TRANSDERM Q72H [facility] Ferrous Sulfate 324 mg 07/16/19 08:00 07/28/19 09:28 Ferrous Sulfate PO 324 mg DAILY@0800 [facility] Administration Gabapentin 300 mg 07/15/19 17:00 07/28/19 09:29 Neurontin PO 300 mg TID [facility] Administration Glucagon 1 mg 07/15/19 16:19 Glucagon
[2019-07-28 12:08] LABS: Glucose Point of Care 110 (65-105)
[2019-07-28 14:00] VITALS: BP 92/57; PULSE 65; RESP 18; TEMP 36.8; O2SAT 96
--- NOTE | 2019-07-28 15:37 | PCCCNOTE ---
On 07/28/19, the student, [Barry Goode ], provided care and completed [facility] documentation on this patient. I have reviewed the student's documentation and agree with the findings.
--- NOTE | 2019-07-28 16:14 | PCPTNOTE ---
Carlito Daniels was evaluated for a wheeled walker on 07/28/2019 by this physical therapist licensed investment sales assistant. The wheeled walker will resolve patient's mobility limitations and will be used for ADL's within the home. The patient can safely use the wheeled walker. ?The wheeled walker will resolve the patient?s mobility deficits, including impaired balance and decreased strength.
[2019-07-28 17:12] LABS: Glucose Point of Care 120 (65-105)
[2019-07-28 18:31] VITALS: PULSE 65
[2019-07-28 20:00] VITALS: PULSE 55; RESP 18; O2SAT 98
[2019-07-28] MEDS: ENOXAPARIN 40 MG/0.4 ML SYRINGE SUB-Q (20:16)
[2019-07-28 22:00] VITALS: BP 94/59; PULSE 55; RESP 18; TEMP 36.3; O2SAT 98
[2019-07-29 01:52] LABS: Glucose Point of Care 67 (65-105)
[2019-07-29 06:00] VITALS: BP 100/63; PULSE 83; RESP 18; TEMP 35.9; O2SAT 94
[2019-07-29 06:04] LABS: Glucose Point of Care 106 (65-105)
[2019-07-29 08:00] VITALS: PULSE 83; RESP 18; O2SAT 94
--- NOTE | 2019-07-29 08:20 | PCPTNOTE ---
Sintia Robbins PTA completed an inpatient rehab wheelchair evaluation on Carlito Daniels on 07/29/2019. The patient is unable to safely and independently ambulate household distances due to their current impairments. Their diagnosis is cva and their impairments include decreased strength, decreased endurance, decreased range of motion, decreased balance, lower extremity weakness, and ataxia. Carlito's weight bearing status is weight-bearing as tolerated on the bilateral lower legs. The patient demonstrates significant functional mobility limitations that impair their ability to participate in mobility-related activities of daily living (MRADLs), including toileting, feeding, dressing, grooming, and bathing in the customary locations in the home. These limitations cannot be sufficiently resolved by the use of an appropriately fitted cane or walker. It is recommended that the patient utilize a wheelchair for functional mobility within the home in order to facilitate optimal safety, independence and participation in all MRADL's and adequately access their home environment on a regular basis. The patient's home provides adequate access between rooms, maneuvering space, and surfaces to accommodate the recommended wheelchair. The use of a wheelchair for functional mobility is strongly recommended and the patient is receptive to using the wheelchair. The use of this wheelchair will significantly improve the patient's ability to participate in MRADLS and the patient will use it on a regular basis in the home. This will facilitate optimal safety, independence, and participation. The patient has demonstrated sufficient physical and mental capabilities needed to safely propel a manual wheelchair that is provided in the home during a typical day. Recommended Wheelchair Frame: standard Recommended Wheelchair Size:18x18 Recommended Wheelchair Cushion:standard Wheelchair Leg Recommendations: swing away elevating leg rests -Elevating legrests are recommended because the patient has significant edema of the lower extremities that requires an elevating legrest. -Anti-tippers are recommended due to patient demonstrating increased risk for falls. They would benefit from anti-tippers with added safety and stabilization. Sintia [place] STEWARD/STEWARDESS NIGHT 07/29/2019 Evaluating Therapist Date I agree with and certify that the above recommendation is medically necessary. Referring Physician Date I agree with and certify that the above recommendation is medically necessary. Referring Physician Date
[2019-07-29 09:41] VITALS: PULSE 83
[2019-07-29] MEDS: carvediloL 25 MG TABLET FEED TUBE ×2 (09:41→17:02)
[2019-07-29] MEDS: lisinopriL 20 MG TABLET 40 MG FEED TUBE (09:41)
[2019-07-29] MEDS: CLOPIDOGREL BISULFATE 75 MG TABLET FEED TUBE (09:41)
[2019-07-29] MEDS: ASPIRIN 81 MG CHEWABLE TABLET FEED TUBE (09:42)
[2019-07-29] MEDS: FERROUS SULFATE 324 MG TABLET PO (09:42)
[2019-07-29] MEDS: CHLORTHALIDONE 25 MG TABLET FEED TUBE (09:42)
[2019-07-29] MEDS: allopurinoL 300 MG TABLET PO (09:42)
[2019-07-29] MEDS: ATORVASTATIN 40 MG TABLET PO (09:42)
[2019-07-29] MEDS: GABAPENTIN 300 MG CAPSULE PO ×3 (09:43→17:02)
[2019-07-29] MEDS: NYSTATIN 100,000 UNITS/ML SUSP 5 ML ORAL.SUSP PO ×4 (09:43→20:24)
[2019-07-29] MEDS: DOCUSATE SODIUM LIQ 100 MG/10 ML UDC FEED TUBE (09:43)
[2019-07-29] MEDS: INSULIN GLARGINE (*BKC) 100 UNITS/ML 35 UNITS SUB-Q ×2 (09:47→17:04)
[2019-07-29 12:11] LABS: Glucose Point of Care 124 (65-105)
--- NOTE | 2019-07-29 13:26 | WPDNEURORHBP ---
Subjective Date/time seen: 07/29/19 13:26 Interval history: this 58-year-old gentleman is here after having had a brainstem stroke which had left him with the significant dysphagia however the good news today's that he has passed modified barium swallow and we are going to start feeding him his neurological deficit left more than right-sided hemiparesis improving he denies any headache nausea vomiting chest pain shortness of breath fever chills sore throat Review of Systems Review of Systems: All systems reviewed & are unremarkable except as noted in HPI and below Functional Status Ambulation Ability Ability to Ambulate 10 Feet: Minimum Assistance X 1 Ability to Ambulate 50 Feet With 2 Turns: Minimum Assistance X 1 Ambulation Assistive Devices: Walker, Wheeled Transfers Ability Ability to Transfer In/Out of Chair: Moderate Assistance X 1 Exam Const: General: comfortable and no acute distress HENMT: General nose exam: Normal nares present Mouth: Yes moist mucous membranes Eyes: General: appearance normal, both eyes and all related structures Neck: Neck: supple and no JVD Resp: Effort & Inspection: normal respiratory effort Auscultation: clear to auscultation bilaterally Cardio: Rate: regular rate Rhythm: regular rhythm GI: GI Palp: Yes Soft to palpation Auscultation: normal bowel sounds Skin: General skin exam: normal color and no rashes or lesions noted Neuro: Other: patient's hemiparesis is getting better and his dysphagia has improved to a point that is going to be fed with the diet and the dietitian is going to watch him how does he due Extrem: General: normal to inspection Psych: Mental Status: mental status grossly normal Objective Data Vital Signs Vital Signs: Vital Signs - 24 hr 07/28/19 14:00 07/28/19 18:31 07/28/19 20:00 Temperature 36.8 C Pulse Rate 65 65 55 L Respiratory Rate 18 18 Blood Pressure 92/57 L Pulse Oximetry 96 98 07/28/19 22:00 07/29/19 06:00 07/29/19 09:41 Temperature 36.3 C L 35.9 C L Pulse Rate 55 L 83 83 Respiratory Rate 18 18 Blood Pressure 94/59 L 100/63 Pulse Oximetry 98 94 Intake/Output Intake/Output: Intake & Output 07/26/19 07/27/19 07/28/19 07/29/19 23:59 23:59 23:59 23:59 Intake Total 1970 1120 1410 1020 Output Total 1250 1000 1600 1200 Balance 720 120 -190 -180 Meds/Results Medications: Active Medications Generic Name Dose Route Start Last Admin Trade Name Freq PRN Reason Stop Dose Admin Hydrocodone Bitart/Acetaminophen 1 tab 07/15/19 17:00 07/29/19 09:46 [place] 7.5-325 Mg FEED TUBE 1 tab BID JIMMIE Administration Allopurinol 300 mg 07/27/19 12:00 07/29/19 09:42 Zyloprim PO 300 mg DAILY@0800 JIMMIE Administration Aspirin 81 mg 07/16/19 09:00 07/29/19 09:42 Aspirin Chewable FEED TUBE 81 mg DAILY JIMMIE Administration Atorvastatin Calcium 40 mg 07/16/19 09:00 07/29/19 09:42 Lipitor PO 40 mg DAILY JIMMIE Administration Bisacodyl 10 mg 07/15/19 16:25 Dulcolax Suppository RECTAL DAILY PRN Constipation Carvedilol 25 mg 07/16/19 09:00 07/29/19 09:41 Coreg FEED TUBE 25 mg BID JIMMIE Administration Chlorthalidone 25 mg 07/16/19 09:00 07/29/19 09:42 [place] FEED TUBE 25 mg DAILY JIMMIE Administration Clopidogrel Bisulfate 75 mg 07/16/19 09:00 07/29/19 09:41 Plavix FEED TUBE 75 mg DAILY JIMMIE Administration Dextrose 12.5 gm 07/15/19 16:19 Dextrose 50% Syringe IV PUSH PRN PRN Hypoglycemia Protocol Docusate Sodium 100 mg 07/16/19 09:00 07/29/19 09:43 Colace Liquid FEED TUBE 100 mg DAILY JIMMIE Administration Enoxaparin Sodium 40 mg 07/16/19 21:00 07/28/19 20:16 Lovenox SUB-Q 40 mg HS [facility] Administration Fentanyl 12 mcg 07/16/19 09:00 Duragesic 12 Mcg Patch TRANSDERM Q72H [facility] Ferrous Sulfate 324 mg 07/16/19 08:00 07/29/19 09:42 Ferrous Sulfate PO 324 mg DAILY@0800 [facility] Administration [place]
[2019-07-29 14:00] VITALS: BP 102/60; PULSE 57; RESP 18; TEMP 36.7; O2SAT 99
--- NOTE | 2019-07-29 14:16 | PCDIET ---
Nutrition Follow-Up Complete: Nutrition Diagnosis: Inadequate oral intake related to dysphagia as evidenced by need for g-tube feedings. Nutrition Goal: Patient to meet estimated nutritional needs. Goal met. Patient has been tolerating Glucerna 1.2 bolus feedings (360mL every 6 hours with 150mL water flush every 6 hours). Diet was advanced to level 5 - minced and moist, diabetic, with level 2 liquids following MBS. Spoke with DIETARY COOK after lunch who reported patient did well at lunch and consumed 100% (which consisted of meatloaf, green beans, mashed potatoes, cheesecake and iced tea). Recommend holding tube feedings for now. If patient consumes less than 50% of meal, would bolus 240mL Glucerna Shake (220kcal, 10g protein). Last recorded weight is 84 kg. Recommend obtaining new weight. Bowel Motility: Last documented BM on 07/26/19. Patient denies c/o on visit earlier today. Labs Reviewed: Glu (106) Meds Noted: Colace, Lantus, Ferrous Sulfate, Novolog Additional Notes: No documented skin breakdown. Will continue to monitor with same goal. Nutrition Monitoring and Evaluation: Follow up every Thursday/Thursday.
--- NOTE | 2019-07-29 14:26 | PCCCNOTE ---
On 07/29/19, the student, [Barry Goode ], provided care and completed [facility] documentation on this patient. I have reviewed the student's documentation and agree with the findings.
[2019-07-29 16:53] LABS: Glucose Point of Care 175 (65-105)
[2019-07-29 17:02] VITALS: PULSE 64
[2019-07-29] MEDS: ENOXAPARIN 40 MG/0.4 ML SYRINGE SUB-Q (20:24)
[2019-07-29 22:00] VITALS: BP 111/60; PULSE 55; RESP 18; TEMP 35.5; O2SAT 99
[2019-07-29 23:58] LABS: Glucose Point of Care 50 (65-105)
[2019-07-30 00:12] LABS: Glucose Point of Care 65 (65-105)
[2019-07-30] MEDS: GLUCOSE ORAL GEL 15 GM OF GLUCSE IN 37.5 GM TUBE FEED TUBE (00:13)
[2019-07-30 00:59] LABS: Glucose Point of Care 84 (65-105)
[2019-07-30 05:09] LABS: Basophils Percent Auto 0.5 % (0.2-1.2); Eosinophils Absolute Auto 0.2 K/mm3 (0-0.3); Eosinophils Percent Auto 2.6 % (0-4.4); Hematocrit 41.7 % (42.0-52.0); Hemoglobin 13.3 g/dL (14.0-18.0); Immature Granulocyte Absolute 0.03 K/mm3 (0.00-0.031); Immature Granulocyte Percent A 0.4 % (0-0.5); Lymphocytes Absolute Auto 1.73 K/mm3 (0.9-3.2); Lymphocytes Percent Auto 21.8 % (18.3-44.2); Mean Corpuscular HGB Conc 31.9 g/dl (32-36); Mean Corpuscular Hemoglobin 29.1 pg (26-34); Mean Corpuscular Volume 91.2 fl (80-100); Mean Platelet Volume 10.9 fl (7.4-10.4); Monocytes Absolute Auto 0.6 K/mm3 (0.1-0.6); Monocytes Percent Auto 7.3 % (2.6-8.5); Neutrophils Absolute Auto 5.4 K/mm3 (1.3-6.7); Neutrophils Percent Auto 67.4 % (45.5-73.1); Platelet Count Result 181 k/mm3 (150-375); Red Blood Count 4.57 M/mm3 (4.6-6.20)
[2019-07-30 05:34] LABS: Blood Urea Nitrogen 38 mg/dL (9-20); Calcium 8.9 mg/dL (8.4-10.2); Carbon Dioxide 34 mmol/L (22-30); Chloride 93 mmol/L (98-107); Estimated CRCL calculation 76 ml/min; Estimated Glomerular Filt Rate > 60; Glucose 219 mg/dL (75-110); Sodium 132 mmol/L (137-145)
[2019-07-30 05:47] LABS: Glucose Point of Care 173 (65-105)
[2019-07-30 06:00] VITALS: BP 103/64; PULSE 55; RESP 18; TEMP 35.9; O2SAT 98
[2019-07-30 08:00] VITALS: PULSE 62; RESP 18; O2SAT 98
[2019-07-30] MEDS: CLOPIDOGREL BISULFATE 75 MG TABLET FEED TUBE (08:46)
[2019-07-30] MEDS: allopurinoL 300 MG TABLET PO (08:46)
[2019-07-30] MEDS: ASPIRIN 81 MG CHEWABLE TABLET FEED TUBE (08:46)
[2019-07-30] MEDS: NYSTATIN 100,000 UNITS/ML SUSP 5 ML ORAL.SUSP PO ×4 (08:46→20:28)
[2019-07-30 08:47] VITALS: PULSE 62
[2019-07-30] MEDS: FERROUS SULFATE 324 MG TABLET PO (08:47)
[2019-07-30] MEDS: DOCUSATE SODIUM LIQ 100 MG/10 ML UDC FEED TUBE (08:47)
[2019-07-30] MEDS: CHLORTHALIDONE 25 MG TABLET FEED TUBE (08:47)
[2019-07-30] MEDS: ATORVASTATIN 40 MG TABLET PO (08:47)
[2019-07-30] MEDS: GABAPENTIN 300 MG CAPSULE PO ×3 (08:47→17:31)
[2019-07-30] MEDS: carvediloL 25 MG TABLET FEED TUBE ×2 (08:47→17:31)
[2019-07-30] MEDS: lisinopriL 20 MG TABLET 40 MG FEED TUBE (08:47)
[2019-07-30] MEDS: INSULIN GLARGINE (*BKC) 100 UNITS/ML 35 UNITS SUB-Q ×2 (08:51→17:35)
[2019-07-30 11:53] LABS: Glucose Point of Care 150 (65-105)
[2019-07-30 14:00] VITALS: BP 138/78; PULSE 78; RESP 18; TEMP 36.6; O2SAT 98
[2019-07-30 17:15] LABS: Glucose Point of Care 155 (65-105)
[2019-07-30 17:31] VITALS: PULSE 78
--- NOTE | 2019-07-30 19:27 | PC.NURSE ---
Patient ate well with all 3 meals today. no tube feeding given.
[2019-07-30] MEDS: ENOXAPARIN 40 MG/0.4 ML SYRINGE SUB-Q (20:28)
[2019-07-30 22:00] VITALS: BP 100/57; PULSE 69; RESP 18; TEMP 36.6; O2SAT 97
[2019-07-30 23:59] LABS: Glucose Point of Care 132 (65-105)
[2019-07-31 06:00] VITALS: BP 110/62; PULSE 58; RESP 18; TEMP 36.4; O2SAT 99
[2019-07-31 06:23] LABS: Glucose Point of Care 91 (65-105)
[2019-07-31] MEDS: allopurinoL 300 MG TABLET PO (09:28)
[2019-07-31] MEDS: FERROUS SULFATE 324 MG TABLET PO (09:28)
[2019-07-31] MEDS: ASPIRIN 81 MG CHEWABLE TABLET FEED TUBE (09:28)
[2019-07-31 09:29] VITALS: PULSE 60
[2019-07-31] MEDS: carvediloL 25 MG TABLET FEED TUBE ×2 (09:29→17:22)
[2019-07-31] MEDS: ATORVASTATIN 40 MG TABLET PO (09:29)
[2019-07-31] MEDS: CHLORTHALIDONE 25 MG TABLET FEED TUBE (09:30)
[2019-07-31] MEDS: DOCUSATE SODIUM LIQ 100 MG/10 ML UDC FEED TUBE (09:31)
[2019-07-31] MEDS: GABAPENTIN 300 MG CAPSULE PO ×3 (09:31→17:22)
[2019-07-31] MEDS: lisinopriL 20 MG TABLET 40 MG FEED TUBE (09:31)
[2019-07-31] MEDS: NYSTATIN 100,000 UNITS/ML SUSP 5 ML ORAL.SUSP PO ×4 (09:31→21:47)
[2019-07-31] MEDS: CLOPIDOGREL BISULFATE 75 MG TABLET FEED TUBE (09:31)
--- NOTE | 2019-07-31 12:53 | WPDNEURORHBP ---
Subjective Date/time seen: S/P acute left medullary stroke with hypertension,DM,hyperlipidemia and never smoker and resultant dszaalake87/21/20 12:53 Review of Systems Review of Systems: All systems reviewed & are unremarkable except as noted in HPI and below (improving dysphagia and being fed,) Functional Status Ambulation Ability Ability to Ambulate 10 Feet: Minimum Assistance X 1 Ability to Ambulate 50 Feet With 2 Turns: Minimum Assistance X 1 Ambulation Assistive Devices: Walker, Wheeled Transfers Ability Ability to Transfer In/Out of Chair: Moderate Assistance X 1 Exam Const: General: no acute distress Eyes: General: appearance normal, both eyes and all related structures Neck: Neck: full ROM Resp: Effort & Inspection: normal respiratory effort Auscultation: clear to auscultation bilaterally Cardio: Rate: regular rate Rhythm: regular rhythm GI: Auscultation: normal bowel sounds Skin: General skin exam: no rashes or lesions noted Neuro: General: patient oriented x3 Cognition (Neuro): normal cognition Motor exam (neuro): Abnormal motor strength present (improving) Extrem: General: normal to inspection Psych: Appearance: grossly normal Objective Data Vital Signs Vital Signs: Vital Signs - 24 hr 07/30/19 14:00 07/30/19 17:31 07/30/19 22:00 Temperature 36.6 C 36.6 C Pulse Rate 78 78 69 Respiratory Rate 18 18 Blood Pressure 138/78 100/57 L Pulse Oximetry 98 97 07/31/19 06:00 07/31/19 09:29 Temperature 36.4 C Pulse Rate 58 L 60 Respiratory Rate 18 Blood Pressure 110/62 Pulse Oximetry 99 Intake/Output Intake/Output: Intake & Output 07/28/19 07/29/19 07/30/19 07/31/19 23:59 23:59 23:59 23:59 Intake Total 1410 1260 1470 820 Output Total 1600 2500 1550 500 Balance -190 -1240 -80 320 Meds/Results Medications: Active Medications Generic Name Dose Route Start Last Admin Trade Name Freq PRN Reason Stop Dose Admin Acetaminophen 650 mg 07/30/19 12:01 Tylenol Tablet PO Q6H PRN Mild Pain (1-3) or Fever Hydrocodone Bitart/Acetaminophen 1 tab 07/15/19 17:00 07/31/19 09:31 [place] 7.5-325 Mg FEED TUBE 1 tab BID JIMMIE Administration Allopurinol 300 mg 06/17/20 12:00 07/31/19 09:28 Zyloprim PO 300 mg DAILY@0800 [facility] Administration Aspirin 81 mg 07/16/19 09:00 07/31/19 09:28 Aspirin Chewable FEED TUBE 81 mg DAILY JIMMIE Administration Atorvastatin Calcium 40 mg 07/16/19 09:00 07/31/19 09:29 Lipitor PO 40 mg DAILY JIMMIE Administration Bisacodyl 10 mg 07/15/19 16:25 Dulcolax Suppository RECTAL DAILY PRN Constipation Carvedilol 25 mg 07/16/19 09:00 07/31/19 09:29 Coreg FEED TUBE 25 mg BID [facility] Administration Chlorthalidone 25 mg 07/16/19 09:00 07/31/19 09:30 [place] FEED TUBE 25 mg DAILY [facility] Administration Clopidogrel Bisulfate 75 mg 07/16/19 09:00 07/31/19 09:31 Plavix FEED TUBE 75 mg DAILY [facility] Administration Dextrose 12.5 gm 07/15/19 16:19 Dextrose 50% Syringe IV PUSH PRN PRN Hypoglycemia Protocol Docusate Sodium 100 mg 07/16/19 09:00 07/31/19 09:31 Colace Liquid FEED TUBE 100 mg DAILY [facility] Administration Enoxaparin Sodium 40 mg 07/16/19 21:00 07/30/19 20:28 Lovenox SUB-Q 40 mg HS [facility] Administration Fentanyl 12 mcg 07/16/19 09:00 Duragesic 12 Mcg Patch TRANSDERM Q72H [facility] Ferrous Sulfate 324 mg 07/16/19 08:00 07/31/19 09:28 Ferrous Sulfate PO 324 mg DAILY@0800 [facility] Administration Gabapentin 300 mg 07/15/19 17:00 07/31/19 09:31 Neurontin PO 300 mg TID [facility] Administration Glucagon 1 mg 07/15/19 16:19 Glucagon For Inj IM PRN PRN Hypoglycemia Protocol Glucose 15 gm 07/15/19 17:55 07/30/19 00:13 Glutose 15 FEED TUBE 15 gm PRN PRN Administration Hypoglycemia Protocol Dextrose 1,000 mls @ 100 mls/hr 07/15/19 16:19 Dextrose 5% 1,000 Ml IVPB PRN
[2019-07-31 13:05] LABS: Glucose Point of Care 123 (65-105)
[2019-07-31 14:00] VITALS: BP 93/56; PULSE 62; RESP 18; TEMP 37; O2SAT 99
[2019-07-31 17:17] LABS: Glucose Point of Care 156 (65-105)
[2019-07-31 17:22] VITALS: PULSE 62
[2019-07-31] MEDS: INSULIN GLARGINE (*BKC) 100 UNITS/ML 35 UNITS SUB-Q (17:22)
[2019-07-31 20:00] VITALS: PULSE 58; RESP 18; O2SAT 99
[2019-07-31] MEDS: ENOXAPARIN 40 MG/0.4 ML SYRINGE SUB-Q (21:47)
[2019-07-31 22:00] VITALS: BP 99/56; PULSE 58; RESP 18; TEMP 35.5; O2SAT 99
[2019-07-31 22:01] LABS: Glucose Point of Care 177 (65-105)
[2019-08-01] VITALS (7 sets, daily range): BP systolic 94–115; BP diastolic 54–58; PULSE 56–61; RESP 18–20; TEMP 35.7–36.6; O2SAT 98–99
[2019-08-01 03:46] LABS: Glucose Point of Care 52 (65-105)
[2019-08-01 03:58] LABS: Glucose Point of Care 65 (65-105)
[2019-08-01 06:10] LABS: Glucose Point of Care 117 (65-105)
[2019-08-01] MEDS: FERROUS SULFATE 324 MG TABLET PO (09:39)
[2019-08-01] MEDS: ASPIRIN 81 MG CHEWABLE TABLET FEED TUBE (09:39)
[2019-08-01] MEDS: ATORVASTATIN 40 MG TABLET PO (09:39)
[2019-08-01] MEDS: CLOPIDOGREL BISULFATE 75 MG TABLET FEED TUBE (09:39)
[2019-08-01] MEDS: CHLORTHALIDONE 25 MG TABLET FEED TUBE (09:39)
[2019-08-01] MEDS: allopurinoL 300 MG TABLET PO (09:39)
[2019-08-01] MEDS: lisinopriL 20 MG TABLET 40 MG FEED TUBE (09:40)
[2019-08-01] MEDS: GABAPENTIN 300 MG CAPSULE PO ×3 (09:40→17:28)
[2019-08-01] MEDS: NYSTATIN 100,000 UNITS/ML SUSP 5 ML ORAL.SUSP PO ×4 (09:40→21:11)
[2019-08-01] MEDS: INSULIN GLARGINE (*BKC) 100 UNITS/ML 35 UNITS SUB-Q ×2 (09:43→17:31)
[2019-08-01] MEDS: carvediloL 25 MG TABLET FEED TUBE (09:59)
[2019-08-01 12:11] LABS: Glucose Point of Care 79 (65-105)
[2019-08-01] MEDS: DOCUSATE SODIUM 100 MG CAPSULE PO (12:40)
[2019-08-01] MEDS: carvediloL 25 MG TABLET PO (17:27)
[2019-08-01 17:37] LABS: Glucose Point of Care 98 (65-105)
[2019-08-01] MEDS: ENOXAPARIN 40 MG/0.4 ML SYRINGE SUB-Q (21:11)
[2019-08-01 22:07] LABS: Glucose Point of Care 89 (65-105)
[2019-08-02 04:23] LABS: Glucose Point of Care 59 (65-105)
[2019-08-02 04:49] LABS: Glucose Point of Care 68 (65-105)
[2019-08-02 06:00] VITALS: BP 96/60; PULSE 57; RESP 18; TEMP 36.3; O2SAT 96
[2019-08-02 07:13] LABS: Glucose Point of Care 86 (65-105)
[2019-08-02] MEDS: allopurinoL 300 MG TABLET PO (10:19)
[2019-08-02] MEDS: FERROUS SULFATE 324 MG TABLET PO (10:20)
[2019-08-02 10:21] VITALS: PULSE 57
[2019-08-02] MEDS: ASPIRIN 81 MG CHEWABLE TABLET PO (10:21)
[2019-08-02] MEDS: ATORVASTATIN 40 MG TABLET PO (10:21)
[2019-08-02] MEDS: carvediloL 25 MG TABLET PO ×2 (10:21→17:54)
[2019-08-02] MEDS: CHLORTHALIDONE 25 MG TABLET PO (10:21)
[2019-08-02] MEDS: DOCUSATE SODIUM 100 MG CAPSULE PO (10:22)
[2019-08-02] MEDS: GABAPENTIN 300 MG CAPSULE PO ×3 (10:22→17:53)
[2019-08-02] MEDS: CLOPIDOGREL BISULFATE 75 MG TABLET PO (10:22)
[2019-08-02] MEDS: INSULIN GLARGINE (*BKC) 100 UNITS/ML 30 UNITS SUB-Q ×2 (10:25→20:52)
[2019-08-02] MEDS: NYSTATIN 100,000 UNITS/ML SUSP 5 ML ORAL.SUSP PO ×4 (10:32→20:58)
[2019-08-02] MEDS: lisinopriL 20 MG TABLET 40 MG PO (10:32)
--- NOTE | 2019-08-02 10:37 | PCDIET ---
Nutrition Follow-Up Complete: Nutrition Diagnosis: Inadequate oral intake related to dysphagia as evidenced by need for g-tube feedings. Nutrition Goal: Patient to meet estimated nutritional needs. Goal met. Patient reports tolerating diabetic, minced and moist diet with mildly thick liquids. Reports good appetite without c/o. Tube feedings only provided if less than 50% of meal consumed; however, patient has been consuming 100% of meals and supplemental tube feeding has not been necessary. Last recorded weight is 84 kg. Recommend obtaining new weight. Bowel Motility: +BM on 08/01/19. Labs Reviewed: Glu (86) Meds Noted: Lantus, Colace, Fentanyl, Ferrous Sulfate, Novolog Additional Notes: Lantus decreased today due to low blood sugars in the morning. No documented skin breakdown. Will continue to monitor with same goal. Nutrition Monitoring and Evaluation: Follow up every Thursday/Thursday.
[2019-08-02 12:00] LABS: Glucose Point of Care 162 (65-105)
[2019-08-02 14:00] VITALS: BP 107/72; PULSE 65; RESP 17; TEMP 36.4; O2SAT 97
--- NOTE | 2019-08-02 14:10 | WPDNEURORHBP ---
Subjective Date/time seen: 08/02/19 14:10 Interval history: this 58-year-old gentleman is here due to brainstem stroke and dysphagia and left more than right-sided hemiparesis he has done very well and is able to eat orally the nectar thick liquid family training is going on pressure has been relatively low so we have to decrease his Lantus at night and even during the day He denies any headache nausea vomiting chest pain shortness of breath fever chills sore throat Review of Systems Review of Systems: All systems reviewed & are unremarkable except as noted in HPI and below Functional Status Ambulation Ability Ability to Ambulate 10 Feet: Minimum Assistance X 1 Ability to Ambulate 50 Feet With 2 Turns: Minimum Assistance X 1 Ambulation Assistive Devices: Walker, Wheeled Transfers Ability Ability to Transfer In/Out of Chair: Moderate Assistance X 1 Exam Const: General: comfortable and no acute distress HENMT: General nose exam: Normal nares present Mouth: Yes moist mucous membranes Eyes: General: appearance normal, both eyes and all related structures Neck: Neck: supple and no JVD Resp: Effort & Inspection: normal respiratory effort Auscultation: clear to auscultation bilaterally Cardio: Rate: regular rate Rhythm: regular rhythm GI: GI Palp: Yes Soft to palpation Auscultation: normal bowel sounds Skin: General skin exam: normal color and no rashes or lesions noted Neuro: Other: patient is awake and alert well oriented and has improving weakness left more than the right Extrem: General: normal to inspection Psych: Mental Status: mental status grossly normal Objective Data Vital Signs Vital Signs: Vital Signs - 24 hr 08/01/19 17:27 08/01/19 20:00 08/01/19 21:56 Temperature 35.8 C L Pulse Rate 56 L 56 L 56 L Respiratory Rate 18 18 Blood Pressure 103/58 L Pulse Oximetry 99 99 08/02/19 06:00 08/02/19 10:21 Temperature 36.3 C L Pulse Rate 57 L 57 L Respiratory Rate 18 Blood Pressure 96/60 L Pulse Oximetry 96 Intake/Output Intake/Output: Intake & Output 07/30/19 07/31/19 08/01/19 08/02/19 23:59 23:59 23:59 23:59 Intake Total 1470 1660 1200 1260 Output Total 1550 1750 1400 Balance -80 -90 -200 1260 Meds/Results Medications: Active Medications Generic Name Dose Route Start Last Admin Trade Name Frefiona PRN Reason Stop Dose Admin Acetaminophen 650 mg 07/30/19 12:01 Tylenol Tablet PO Q6H PRN Mild Pain (1-3) or Fever Hydrocodone Bitart/Acetaminophen 1 tab 08/01/19 17:00 08/02/19 10:25 [place] 7.5-325 Mg PO 1 tab BID JIMMIE Administration Allopurinol 300 mg 07/27/19 12:00 08/02/19 10:19 Zyloprim PO 300 mg DAILY@0800 JIMMIE Administration Aspirin 81 mg 08/02/19 09:00 08/02/19 10:21 Aspirin Chewable PO 81 mg DAILY JIMMIE Administration Atorvastatin Calcium 40 mg 07/16/19 09:00 08/02/19 10:21 Lipitor PO 40 mg DAILY JIMMIE Administration Bisacodyl 10 mg 07/15/19 16:25 Dulcolax Suppository RECTAL DAILY PRN Constipation Carvedilol 25 mg 08/01/19 17:00 08/02/19 10:21 Coreg PO 25 mg BID JIMMIE Administration Chlorthalidone 25 mg 08/02/19 09:00 08/02/19 10:21 [place] PO 25 mg DAILY JIMMIE Administration Clopidogrel Bisulfate 75 mg 08/02/19 09:00 08/02/19 10:22 Plavix PO 75 mg DAILY JIMMIE Administration Dextrose 12.5 gm 07/15/19 16:19 Dextrose 50% Syringe IV PUSH PRN PRN Hypoglycemia Protocol Docusate Sodium 100 mg 08/01/19 12:00 08/02/19 10:22 Colace Capsule PO 100 mg DAILY [facility] Administration Enoxaparin Sodium 40 mg 07/16/19 21:00 08/01/19 21:11 Lovenox SUB-Q 40 mg HS JIMMIE Administration Fentanyl 12 mcg 07/16/19 09:00 Duragesic 12 Mcg Patch TRANSDERM Q72H [facility] Ferrous Sulfate 324 mg 07/16/19 08:00 08/02/19 10:20 Ferrous Sulfate PO 324 mg DAILY@0800 [facility] Administration Gabapentin 300 mg 07/15/19 17:00 08/02/19 14:
[2019-08-02 17:18] LABS: Glucose Point of Care 124 (65-105)
[2019-08-02 17:54] VITALS: PULSE 65
[2019-08-02 20:40] LABS: Glucose Point of Care 129 (65-105)
[2019-08-02] MEDS: ENOXAPARIN 40 MG/0.4 ML SYRINGE SUB-Q (20:52)
[2019-08-02 22:00] VITALS: BP 87/49; PULSE 61; RESP 17; TEMP 36.7; O2SAT 94
--- NOTE | 2019-08-03 00:56 | PC.NURSE ---
rehan 129 at 2100, now 76 and states he feels funny, skin warm/dry, alert- applejujasmyn and celina given for decrreasing glucose
[2019-08-03 00:57] LABS: Glucose Point of Care 76 (65-105)
[2019-08-03 03:36] LABS: Glucose Point of Care 104 (65-105)
[2019-08-03 06:00] VITALS: BP 91/62; PULSE 61; RESP 17; TEMP 36.9; O2SAT 98
[2019-08-03] MEDS: GLUCOSE ORAL GEL 15 GM OF GLUCSE IN 37.5 GM TUBE PO (06:53)
[2019-08-03 07:19] LABS: Glucose Point of Care 53 (65-105)
[2019-08-03 07:19] LABS: Glucose Point of Care 79 (65-105)
[2019-08-03] MEDS: CLOPIDOGREL BISULFATE 75 MG TABLET PO (08:12)
[2019-08-03] MEDS: NYSTATIN 100,000 UNITS/ML SUSP 5 ML ORAL.SUSP PO ×4 (08:12→20:59)
[2019-08-03 08:13] VITALS: PULSE 61
[2019-08-03] MEDS: carvediloL 25 MG TABLET PO ×2 (08:13→17:18)
[2019-08-03] MEDS: allopurinoL 300 MG TABLET PO (08:13)
[2019-08-03] MEDS: ATORVASTATIN 40 MG TABLET PO (08:13)
[2019-08-03] MEDS: lisinopriL 20 MG TABLET 40 MG PO (08:13)
[2019-08-03] MEDS: GABAPENTIN 300 MG CAPSULE PO ×3 (08:13→17:18)
[2019-08-03] MEDS: ASPIRIN 81 MG CHEWABLE TABLET PO (08:13)
[2019-08-03] MEDS: DOCUSATE SODIUM 100 MG CAPSULE PO (08:13)
[2019-08-03] MEDS: CHLORTHALIDONE 25 MG TABLET PO (08:13)
[2019-08-03] MEDS: FERROUS SULFATE 324 MG TABLET PO (08:13)
--- NOTE | 2019-08-03 11:43 | WPDNEURORHBP ---
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 his dysphagia has improved and he is eating fairly well the diet recommended by the dietitian he was little dizzy which is postural but it was trivial and went away He denies any headache nausea vomiting chest pain shortness of breath fever chills or sore throat Review of Systems Review of Systems: All systems reviewed & are unremarkable except as noted in HPI and below Functional Status Ambulation Ability Ability to Ambulate 10 Feet: Minimum Assistance X 1 Ability to Ambulate 50 Feet With 2 Turns: Minimum Assistance X 1 Ambulation Assistive Devices: Walker, Wheeled Transfers Ability Ability to Transfer In/Out of Chair: Moderate Assistance X 1 Exam Const: General: comfortable and no acute distress HENMT: General nose exam: Normal nares present Mouth: Yes moist mucous membranes Eyes: General: appearance normal, both eyes and all related structures Neck: Neck: supple and no JVD Resp: Effort & Inspection: normal respiratory effort Auscultation: clear to auscultation bilaterally Cardio: Rate: regular rate Rhythm: regular rhythm GI: GI Palp: Yes Soft to palpation Auscultation: normal bowel sounds Skin: General skin exam: normal color and no rashes or lesions noted Neuro: Other: the patient is awake and alert will oriented in time place and person has improving left more than the right-sided hemiparesis Extrem: General: normal to inspection Psych: Mental Status: mental status grossly normal Objective Data Vital Signs Vital Signs: Vital Signs - 24 hr 08/02/19 14:00 08/02/19 17:54 08/02/19 22:00 Temperature 36.4 C 36.7 C Pulse Rate 65 65 61 Respiratory Rate 17 17 Blood Pressure 107/72 87/49 L Pulse Oximetry 97 94 08/03/19 06:00 08/03/19 08:13 Temperature 36.9 C Pulse Rate 61 61 Respiratory Rate 17 Blood Pressure 91/62 L Pulse Oximetry 98 Intake/Output Intake/Output: Intake & Output 07/31/19 08/01/19 08/02/19 08/03/19 23:59 23:59 23:59 23:59 Intake Total 1660 1200 1740 480 Output Total 1750 1400 Balance -90 -200 1740 480 Meds/Results Medications: Active Medications Generic Name Dose Route Start Last Admin Trade Name Freq PRN Reason Stop Dose Admin Acetaminophen 650 mg 07/30/19 12:01 Tylenol Tablet PO Q6H PRN Mild Pain (1-3) or Fever Hydrocodone Bitart/Acetaminophen 1 tab 08/01/19 17:00 08/03/19 08:13 [place] 7.5-325 Mg PO 1 tab BID JIMMIE Administration Allopurinol 300 mg 07/27/19 12:00 08/03/19 08:13 Zyloprim PO 300 mg DAILY@0800 JIMMIE Administration Aspirin 81 mg 08/02/19 09:00 08/03/19 08:13 Aspirin Chewable PO 81 mg DAILY JIMMIE Administration Atorvastatin Calcium 40 mg 07/16/19 09:00 08/03/19 08:13 Lipitor PO 40 mg DAILY JIMMIE Administration Bisacodyl 10 mg 07/15/19 16:25 Dulcolax Suppository RECTAL DAILY PRN Constipation Carvedilol 25 mg 08/01/19 17:00 08/03/19 08:13 Coreg PO 25 mg BID JIMMIE Administration Chlorthalidone 25 mg 08/02/19 09:00 08/03/19 08:13 [place] PO 25 mg DAILY JIMMIE Administration Clopidogrel Bisulfate 75 mg 08/02/19 09:00 08/03/19 08:12 Plavix PO 75 mg DAILY JIMMIE Administration Dextrose 12.5 gm 07/15/19 16:19 Dextrose 50% Syringe IV PUSH PRN PRN Hypoglycemia Protocol Docusate Sodium 100 mg 08/01/19 12:00 08/03/19 08:13 Colace Capsule PO 100 mg DAILY [facility] Administration Enoxaparin Sodium 40 mg 07/16/19 21:00 08/02/19 20:52 Lovenox SUB-Q 40 mg HS [facility] Administration Fentanyl 12 mcg 07/16/19 09:00 Duragesic 12 Mcg Patch TRANSDERM Q72H [facility] Ferrous Sulfate 324 mg 07/16/19 08:00 08/03/19 08:13 Ferrous Sulfate PO 324 mg DAILY@0800 [facility] Administration Gabapentin 300 mg 07/15/19 17
[2019-08-03 11:46] LABS: Glucose Point of Care 156 (65-105)
[2019-08-03 14:00] VITALS: BP 118/65; PULSE 68; RESP 18; TEMP 36.4; O2SAT 98
[2019-08-03 17:10] LABS: Glucose Point of Care 132 (65-105)
[2019-08-03 17:18] VITALS: PULSE 68
[2019-08-03] MEDS: ENOXAPARIN 40 MG/0.4 ML SYRINGE SUB-Q (21:00)
[2019-08-03] MEDS: INSULIN GLARGINE (*BKC) 100 UNITS/ML 25 UNITS SUB-Q (21:08)
[2019-08-03 22:00] VITALS: BP 97/53; PULSE 61; RESP 18; TEMP 36.1; O2SAT 98
[2019-08-03 23:18] LABS: Glucose Point of Care 149 (65-105)
[2019-08-04 06:00] VITALS: BP 132/85; PULSE 58; RESP 18; TEMP 36.4; O2SAT 100
[2019-08-04 06:43] LABS: Glucose Point of Care 86 (65-105)
[2019-08-04] MEDS: DOCUSATE SODIUM 100 MG CAPSULE PO (10:06)
[2019-08-04] MEDS: ASPIRIN 81 MG CHEWABLE TABLET PO (10:06)
[2019-08-04] MEDS: CHLORTHALIDONE 25 MG TABLET PO (10:06)
[2019-08-04] MEDS: ATORVASTATIN 40 MG TABLET PO (10:06)
[2019-08-04] MEDS: CLOPIDOGREL BISULFATE 75 MG TABLET PO (10:06)
[2019-08-04] MEDS: NYSTATIN 100,000 UNITS/ML SUSP 5 ML ORAL.SUSP PO ×4 (10:06→21:39)
[2019-08-04 10:07] VITALS: PULSE 68
[2019-08-04] MEDS: FERROUS SULFATE 324 MG TABLET PO (10:07)
[2019-08-04] MEDS: GABAPENTIN 300 MG CAPSULE PO ×3 (10:07→17:07)
[2019-08-04] MEDS: carvediloL 25 MG TABLET PO ×2 (10:07→17:07)
[2019-08-04] MEDS: lisinopriL 20 MG TABLET 40 MG PO (10:07)
[2019-08-04] MEDS: allopurinoL 300 MG TABLET PO (10:07)
[2019-08-04] MEDS: INSULIN GLARGINE (*BKC) 100 UNITS/ML 25 UNITS SUB-Q ×2 (10:14→21:37)
--- NOTE | 2019-08-04 10:47 | PCDIET ---
Nutrition Follow-Up Complete: Nutrition Diagnosis: Inadequate oral intake related to dysphagia as evidenced by need for g-tube feedings. Nutrition Goal: Patient to meet estimated nutritional needs. Goal met. Patient consuming 100% of meals on soft and bite size, diabetic diet. Patient reports good appetite without c/o. G-tube feedings discontinued which is appropriate. Last recorded weight is 84 kg. Recommend obtaining new weight. Bowel Motility: +BM on 08/03/19. Labs Reviewed: Glu (86) Meds Noted: Colace, Fentanyl, Ferrous Sulfate, Novolog, Lantus Additional Notes: No documented pressure ulcers. Will continue to monitor with same goal. Nutrition Monitoring and Evaluation: Follow up every 5 days.
--- NOTE | 2019-08-04 11:56 | WPDNEURORHBP ---
Subjective Date/time seen: 08/04/19 11:56 Interval history: this 58-year-old of a diabetic white male is here after having had a brainstem stroke which has left him with left much more than the right-sided hemiparesis and dysphagia his dysphagia has improved and he is able to eat the diet recommended by the dietitian his sugars are better controlled since the Lantus has been decreased He denies any signs of hypoglycemia headache nausea vomiting chest pain shortness of breath fever chills sore throat Review of Systems Review of Systems: All systems reviewed & are unremarkable except as noted in HPI and below Functional Status Ambulation Ability Ability to Ambulate 10 Feet: Contact Guard Ability to Ambulate 50 Feet With 2 Turns: Contact Guard Ability to Ambulate 150 Feet: Contact Guard Ambulation Assistive Devices: Walker, Wheeled Transfers Ability Ability to Transfer In/Out of Chair: Moderate Assistance X 1 Exam Const: General: comfortable and no acute distress HENMT: General nose exam: Normal nares present Mouth: Yes moist mucous membranes Eyes: General: appearance normal, both eyes and all related structures Neck: Neck: supple and no JVD Resp: Effort & Inspection: normal respiratory effort Auscultation: clear to auscultation bilaterally Cardio: Rate: regular rate Rhythm: regular rhythm GI: GI Palp: Yes Soft to palpation Auscultation: normal bowel sounds Skin: General skin exam: normal color and no rashes or lesions noted Neuro: Other: patient is awake and alert will oriented with fluent speech and significant improvement in the left-sided hemiparesis and of course improvement in his dysphagia to a point that he is able to eat the diet as recommended by the dietitian Extrem: General: normal to inspection Objective Data Vital Signs Vital Signs: Vital Signs - 24 hr 08/03/19 14:00 08/03/19 17:18 08/03/19 22:00 Temperature 36.4 C 36.1 C L Pulse Rate 68 68 61 Respiratory Rate 18 18 Blood Pressure 118/65 97/53 L Pulse Oximetry 98 98 08/04/19 06:00 08/04/19 10:07 Temperature 36.4 C Pulse Rate 58 L 68 Respiratory Rate 18 Blood Pressure 132/85 Pulse Oximetry 100 Intake/Output Intake/Output: Intake & Output 08/01/19 08/02/19 08/03/19 08/04/19 23:59 23:59 23:59 23:59 Intake Total 1200 1740 1440 240 Output Total 1400 Balance -200 1740 1440 240 Meds/Results Medications: Active Medications Generic Name Dose Route Start Last Admin Trade Name Freq PRN Reason Stop Dose Admin Acetaminophen 650 mg 07/30/19 12:01 Tylenol Tablet PO Q6H PRN Mild Pain (1-3) or Fever Hydrocodone Bitart/Acetaminophen 1 tab 08/01/19 17:00 08/04/19 10:07 [place] 7.5-325 Mg PO 1 tab BID JIMMIE Administration Allopurinol 300 mg 07/27/19 12:00 08/04/19 10:07 Zyloprim PO 300 mg DAILY@0800 JIMMIE Administration Aspirin 81 mg 08/02/19 09:00 08/04/19 10:06 Aspirin Chewable PO 81 mg DAILY JIMMIE Administration Atorvastatin Calcium 40 mg 07/16/19 09:00 08/04/19 10:06 Lipitor PO 40 mg DAILY JIMMIE Administration Bisacodyl 10 mg 07/15/19 16:25 Dulcolax Suppository RECTAL DAILY PRN Constipation Carvedilol 25 mg 08/01/19 17:00 08/04/19 10:07 Coreg PO 25 mg BID JIMMIE Administration Chlorthalidone 25 mg 08/02/19 09:00 08/04/19 10:06 [place] PO 25 mg DAILY JIMMIE Administration Clopidogrel Bisulfate 75 mg 08/02/19 09:00 08/04/19 10:06 Plavix PO 75 mg DAILY JIMMIE Administration Dextrose 12.5 gm 07/15/19 16:19 Dextrose 50% Syringe IV PUSH PRN PRN Hypoglycemia Protocol Docusate Sodium 100 mg 08/01/19 12:00 08/04/19 10:06 Colace Capsule PO 100 mg DAILY JIMMIE Administration Enoxaparin Sodium 40 mg 07/16/19 21:00 08/03/19 21:00 Lovenox SUB-Q 40 mg HS JIMMIE Administration Fentanyl 12 mcg 07/16/19 09:00 Duragesic 12 Mcg Patch TRANSDERM Q72H [facility] Ferrous Sulfate 324 mg 06
[2019-08-04 14:00] VITALS: BP 138/72; PULSE 70; RESP 20; TEMP 36.9; O2SAT 97
[2019-08-04 17:07] VITALS: PULSE 70
[2019-08-04 17:29] LABS: Glucose Point of Care 103 (65-105)
[2019-08-04 17:29] LABS: Glucose Point of Care 148 (65-105)
[2019-08-04 21:10] LABS: Glucose Point of Care 140 (65-105)
[2019-08-04] MEDS: ENOXAPARIN 40 MG/0.4 ML SYRINGE SUB-Q (21:37)
[2019-08-04 22:00] VITALS: BP 101/68; PULSE 55; RESP 20; TEMP 36.6; O2SAT 96
[2019-08-05] VITALS (7 sets, daily range): BP systolic 97–135; BP diastolic 57–72; PULSE 60–78; RESP 18–20; TEMP 36.4–36.8; O2SAT 98–100
[2019-08-05 06:37] LABS: Glucose Point of Care 84 (65-105)
[2019-08-05] MEDS: FERROUS SULFATE 324 MG TABLET PO (09:25)
[2019-08-05] MEDS: ASPIRIN 81 MG CHEWABLE TABLET PO (09:25)
[2019-08-05] MEDS: allopurinoL 300 MG TABLET PO (09:25)
[2019-08-05] MEDS: DOCUSATE SODIUM 100 MG CAPSULE PO (09:26)
[2019-08-05] MEDS: CHLORTHALIDONE 25 MG TABLET PO (09:26)
[2019-08-05] MEDS: ATORVASTATIN 40 MG TABLET PO (09:26)
[2019-08-05] MEDS: carvediloL 25 MG TABLET PO ×2 (09:26→16:40)
[2019-08-05] MEDS: GABAPENTIN 300 MG CAPSULE PO ×3 (09:27→16:41)
[2019-08-05] MEDS: lisinopriL 20 MG TABLET 40 MG PO (09:27)
[2019-08-05] MEDS: NYSTATIN 100,000 UNITS/ML SUSP 5 ML ORAL.SUSP PO ×4 (09:27→20:18)
[2019-08-05] MEDS: CLOPIDOGREL BISULFATE 75 MG TABLET PO (09:27)
[2019-08-05] MEDS: INSULIN GLARGINE (*BKC) 100 UNITS/ML 25 UNITS SUB-Q ×2 (09:29→20:22)
--- NOTE | 2019-08-05 12:33 | WPDNEURORHBP ---
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 with the left primarily hemiparesis his dysphagia had improved and he is eating fairly well denies any headache nausea vomiting choking fever chills or sore throat he is looking forward to be going home in couple of days with home health to follow he will discontinue his Lovenox prior to his discharge is walking more than 100 feet Review of Systems Review of Systems: All systems reviewed & are unremarkable except as noted in HPI and below Functional Status Ambulation Ability Ability to Ambulate 10 Feet: Contact Guard Ability to Ambulate 50 Feet With 2 Turns: Contact Guard Ability to Ambulate 150 Feet: Contact Guard Ambulation Assistive Devices: Walker, Wheeled Transfers Ability Ability to Transfer In/Out of Chair: Moderate Assistance X 1 Exam Const: General: comfortable and no acute distress HENMT: General nose exam: Normal nares present Mouth: Yes moist mucous membranes Eyes: General: appearance normal, both eyes and all related structures Neck: Neck: supple and no JVD Resp: Effort & Inspection: normal respiratory effort Auscultation: clear to auscultation bilaterally Cardio: Rate: regular rate Rhythm: regular rhythm GI: GI Palp: Yes Soft to palpation Auscultation: normal bowel sounds Skin: General skin exam: normal color and no rashes or lesions noted Neuro: Other: patient is awake and alert well oriented to time place and person his speech and language functions are normal cranial exam shows normal his left-sided hemiparesis is significantly improved is walking much better and looking forward to be going home in couple of days Extrem: General: normal to inspection Psych: Mental Status: mental status grossly normal Objective Data Vital Signs Vital Signs: Vital Signs - 24 hr 08/04/19 14:00 08/04/19 17:07 08/04/19 22:00 Temperature 36.9 C 36.6 C Pulse Rate 70 70 55 L Respiratory Rate 20 20 Blood Pressure 138/72 101/68 Pulse Oximetry 97 96 08/05/19 06:00 08/05/19 09:26 Temperature 36.4 C L Pulse Rate 60 78 Respiratory Rate 20 Blood Pressure 97/61 L Pulse Oximetry 100 Intake/Output Intake/Output: Intake & Output 08/02/19 08/03/19 08/04/19 08/05/19 23:59 23:59 23:59 23:59 Intake Total 1740 1440 720 240 Balance 1740 1440 720 240 Meds/Results Medications: Active Medications Generic Name Dose Route Start Last Admin Trade Name Freq PRN Reason Stop Dose Admin Acetaminophen 650 mg 07/30/19 12:01 Tylenol Tablet PO Q6H PRN Mild Pain (1-3) or Fever Hydrocodone Bitart/Acetaminophen 1 tab 08/01/19 17:00 08/05/19 09:27 [place] 7.5-325 Mg PO 1 tab BID JIMMIE Administration Allopurinol 300 mg 07/27/19 12:00 08/05/19 09:25 Zyloprim PO 300 mg DAILY@0800 [facility] Administration Aspirin 81 mg 08/02/19 09:00 08/05/19 09:25 Aspirin Chewable PO 81 mg DAILY [facility] Administration Atorvastatin Calcium 40 mg 07/16/19 09:00 08/05/19 09:26 Lipitor PO 40 mg DAILY [facility] Administration Bisacodyl 10 mg 07/15/19 16:25 Dulcolax Suppository RECTAL DAILY PRN Constipation Carvedilol 25 mg 08/01/19 17:00 08/05/19 09:26 Coreg PO 25 mg BID [facility] Administration Chlorthalidone 25 mg 08/02/19 09:00 08/05/19 09:26 [place] PO 25 mg DAILY [facility] Administration Clopidogrel Bisulfate 75 mg 08/02/19 09:00 08/05/19 09:27 Plavix PO 75 mg DAILY [facility] Administration Dextrose 12.5 gm 07/15/19 16:19 Dextrose 50% Syringe IV PUSH PRN PRN Hypoglycemia Protocol Docusate Sodium 100 mg 08/01/19 12:00 08/05/19 09:26 Colace Capsule PO 100 mg DAILY [facility] Administration Enoxaparin Sodium 40 mg 07/16/19 21:00 08/04/19 21:37 Lovenox SUB-Q 40 mg HS [facility] Administration Fentanyl 12 mcg 07/16/19 09:00 Duragesic 12 Mcg Patch TRANSDERM Q72H [facility] [place]
[2019-08-05 17:11] LABS: Glucose Point of Care 112 (65-105)
[2019-08-05] MEDS: ENOXAPARIN 40 MG/0.4 ML SYRINGE SUB-Q (20:18)
[2019-08-05 22:10] LABS: Glucose Point of Care 172 (65-105)
[2019-08-06 04:45] LABS: Basophils Absolute Auto 0.1 K/mm3 (0.0-0.1); Basophils Percent Auto 0.8 % (0.2-1.2); Eosinophils Absolute Auto 0.4 K/mm3 (0-0.3); Eosinophils Percent Auto 6.1 % (0-4.4); Hematocrit 40.3 % (42.0-52.0); Hemoglobin 12.9 g/dL (14.0-18.0); Immature Granulocyte Absolute 0.02 K/mm3 (0.00-0.031); Immature Granulocyte Percent A 0.3 % (0-0.5); Lymphocytes Absolute Auto 2.53 K/mm3 (0.9-3.2); Lymphocytes Percent Auto 39.7 % (18.3-44.2); Mean Corpuscular Hemoglobin 29.2 pg (26-34); Mean Corpuscular Volume 91.2 fl (80-100); Mean Platelet Volume 9.5 fl (7.4-10.4); Monocytes Absolute Auto 0.5 K/mm3 (0.1-0.6); Monocytes Percent Auto 8.5 % (2.6-8.5); Neutrophils Absolute Auto 2.8 K/mm3 (1.3-6.7); Neutrophils Percent Auto 44.6 % (45.5-73.1); Platelet Count Result 188 k/mm3 (150-375); Red Blood Count 4.42 M/mm3 (4.6-6.20); Red Cell Distribution Width 13.4 % (11.5-14.5); White Blood Count 6.4 K/mm3 (4.5-10.0)
[2019-08-06 04:56] LABS: Blood Urea Nitrogen 28 mg/dL (9-20); Calcium 9.3 mg/dL (8.4-10.2); Carbon Dioxide 28 mmol/L (22-30); Chloride 100 mmol/L (98-107); Estimated CRCL calculation 76 ml/min; Estimated Glomerular Filt Rate > 60; Glucose 99 mg/dL (75-110); Potassium 4.1 mmol/L (3.4-5.0); Sodium 136 mmol/L (137-145)
[2019-08-06 06:00] VITALS: BP 121/73; PULSE 60; RESP 17; TEMP 36.7; O2SAT 99
[2019-08-06 07:05] LABS: Glucose Point of Care 82 (65-105)
[2019-08-06 09:38] VITALS: PULSE 60
[2019-08-06] MEDS: allopurinoL 300 MG TABLET PO (09:38)
[2019-08-06] MEDS: FERROUS SULFATE 324 MG TABLET PO (09:38)
[2019-08-06] MEDS: carvediloL 25 MG TABLET PO ×2 (09:38→17:19)
[2019-08-06] MEDS: ASPIRIN 81 MG CHEWABLE TABLET PO (09:38)
[2019-08-06] MEDS: ATORVASTATIN 40 MG TABLET PO (09:38)
[2019-08-06] MEDS: CHLORTHALIDONE 25 MG TABLET PO (09:39)
[2019-08-06] MEDS: GABAPENTIN 300 MG CAPSULE PO ×3 (09:39→17:19)
[2019-08-06] MEDS: lisinopriL 20 MG TABLET 40 MG PO (09:39)
[2019-08-06] MEDS: CLOPIDOGREL BISULFATE 75 MG TABLET PO (09:39)
[2019-08-06] MEDS: DOCUSATE SODIUM 100 MG CAPSULE PO (09:39)
[2019-08-06] MEDS: NYSTATIN 100,000 UNITS/ML SUSP 5 ML ORAL.SUSP PO ×4 (09:40→20:30)
[2019-08-06] MEDS: INSULIN GLARGINE (*BKC) 100 UNITS/ML 25 UNITS SUB-Q ×2 (09:40→20:55)
[2019-08-06 14:00] VITALS: BP 108/67; PULSE 84; RESP 17; TEMP 36.4; O2SAT 97
--- NOTE | 2019-08-06 16:02 | WPDNEURORHBP ---
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 for which he was not PEG tube which is still intact however is being fed by mouth and doing fairly well he walked over 150 feet today and will be going home tomorrow his most recent labs looks pretty decent He denies any headache nausea vomiting chest pain shortness of breath fever chills or sore throat Review of Systems Review of Systems: All systems reviewed & are unremarkable except as noted in HPI and below Functional Status Ambulation Ability Ability to Ambulate 10 Feet: Contact Guard Ability to Ambulate 50 Feet With 2 Turns: Contact Guard Ability to Ambulate 150 Feet: Contact Guard Ambulation Assistive Devices: Walker, Wheeled Transfers Ability Ability to Transfer In/Out of Chair: Moderate Assistance X 1 Exam Const: General: comfortable and no acute distress HENMT: General nose exam: Normal nares present Mouth: Yes moist mucous membranes Eyes: General: appearance normal, both eyes and all related structures Neck: Neck: supple and no JVD Resp: Effort & Inspection: normal respiratory effort Auscultation: clear to auscultation bilaterally Cardio: Rate: regular rate Rhythm: regular rhythm GI: GI Palp: Yes Soft to palpation Auscultation: normal bowel sounds Skin: General skin exam: normal color and no rashes or lesions noted Neuro: Other: patient is awake and alert well oriented to time place and person looking forward to go home tomorrow his left-sided hemiparesis has significantly improved and dysphagia is gone Extrem: General: normal to inspection Psych: Mental Status: mental status grossly normal Objective Data Vital Signs Vital Signs: Vital Signs - 24 hr 08/05/19 16:40 08/05/19 20:00 08/05/19 22:00 Temperature 36.4 C L Pulse Rate 70 70 63 Respiratory Rate 20 18 Blood Pressure 128/72 Pulse Oximetry 100 100 08/06/19 06:00 08/06/19 09:38 08/06/19 14:00 Temperature 36.7 C 36.4 C Pulse Rate 60 60 84 Respiratory Rate 17 17 Blood Pressure 121/73 108/67 Pulse Oximetry 99 97 Intake/Output Intake/Output: Intake & Output 06/24/20 06/25/20 06/26/20 06/27/20 23:59 23:59 23:59 23:59 Intake Total 1440 720 720 960 Balance 1440 720 720 960 Meds/Results Medications: Active Medications Generic Name Dose Route Start Last Admin Trade Name Freq PRN Reason Stop Dose Admin Acetaminophen 650 mg 07/30/19 12:01 Tylenol Tablet PO Q6H PRN Mild Pain (1-3) or Fever Hydrocodone Bitart/Acetaminophen 1 tab 08/01/19 17:00 08/06/19 09:42 [place] 7.5-325 Mg PO 1 tab BID JIMMIE Administration Allopurinol 300 mg 07/27/19 12:00 08/06/19 09:38 Zyloprim PO 300 mg DAILY@0800 JIMMIE Administration Aspirin 81 mg 08/02/19 09:00 08/06/19 09:38 Aspirin Chewable PO 81 mg DAILY JIMMIE Administration Atorvastatin Calcium 40 mg 07/16/19 09:00 08/06/19 09:38 Lipitor PO 40 mg DAILY JIMMIE Administration Bisacodyl 10 mg 07/15/19 16:25 Dulcolax Suppository RECTAL DAILY PRN Constipation Carvedilol 25 mg 08/01/19 17:00 08/06/19 09:38 Coreg PO 25 mg BID JIMMIE Administration Chlorthalidone 25 mg 08/02/19 09:00 08/06/19 09:39 [place] PO 25 mg DAILY JIMMIE Administration Clopidogrel Bisulfate 75 mg 08/02/19 09:00 08/06/19 09:39 Plavix PO 75 mg DAILY JIMMIE Administration Dextrose 12.5 gm 07/15/19 16:19 Dextrose 50% Syringe IV PUSH PRN PRN Hypoglycemia Protocol Docusate Sodium 100 mg 08/01/19 12:00 08/06/19 09:39 Colace Capsule PO 100 mg DAILY JIMMIE Administration Enoxaparin Sodium 40 mg 07/16/19 21:00 08/05/19 20:18 Lovenox SUB-Q 40 mg HS JIMMIE Administration Fentanyl 12 mcg 07/16/19 09:00 Duragesic 12 Mcg Patch TRANSDERM Q72H [facility] Ferrous Sulfate 324 mg 07/16/19 08:00
[2019-08-06 17:19] VITALS: PULSE 84
[2019-08-06] MEDS: ENOXAPARIN 40 MG/0.4 ML SYRINGE SUB-Q (20:31)
[2019-08-06 21:17] LABS: Glucose Point of Care 135 (65-105)
[2019-08-06 22:00] VITALS: BP 117/65; PULSE 62; RESP 18; TEMP 36.2; O2SAT 98
[2019-08-07 06:00] VITALS: BP 108/71; PULSE 64; RESP 18; TEMP 36.8; O2SAT 95
[2019-08-07 06:13] LABS: Glucose Point of Care 110 (65-105)
[2019-08-07] MEDS: allopurinoL 300 MG TABLET PO (09:09)
[2019-08-07] MEDS: CHLORTHALIDONE 25 MG TABLET PO (09:10)
[2019-08-07] MEDS: lisinopriL 20 MG TABLET 40 MG PO (09:10)
[2019-08-07] MEDS: GABAPENTIN 300 MG CAPSULE PO (09:10)
[2019-08-07] MEDS: DOCUSATE SODIUM 100 MG CAPSULE PO (09:10)
[2019-08-07] MEDS: ASPIRIN 81 MG CHEWABLE TABLET PO (09:10)
[2019-08-07] MEDS: ATORVASTATIN 40 MG TABLET PO (09:10)
[2019-08-07] MEDS: FERROUS SULFATE 324 MG TABLET PO (09:10)
[2019-08-07] MEDS: CLOPIDOGREL BISULFATE 75 MG TABLET PO (09:10)
[2019-08-07] MEDS: INSULIN GLARGINE (*BKC) 100 UNITS/ML 25 UNITS SUB-Q (09:10)
[2019-08-07 09:16] VITALS: PULSE 64
[2019-08-07] MEDS: NYSTATIN 100,000 UNITS/ML SUSP 5 ML ORAL.SUSP PO (09:16)
[2019-08-07] MEDS: carvediloL 25 MG TABLET PO (09:16)
--- NOTE | 2019-08-12 11:29 | PM.DS ---
DS: Admitting Diagnosis Admitting Diagnosis Admitting Diagnosis: Cerebral infarction, unspecified DS: Discharge Diagnosis Discharge Diagnosis (1) Left hemiparesis: Code(s): G81.94 - Hemiplegia, unspecified affecting left nondominant side Status: Acute (2) Status post insertion of percutaneous endoscopic gastrostomy (PEG) tube: Code(s): Z93.1 - Gastrostomy status Status: Acute (3) Dysphagia: Code(s): R13.10 - Dysphagia, unspecified Status: Acute (4) Right hemiparesis: Code(s): G81.91 - Hemiplegia, unspecified affecting right dominant side Status: Acute (5) Hyperlipidemia: Code(s): E78.5 - Hyperlipidemia, unspecified Status: Acute (6) Polyarthritis: Code(s): M13.0 - Polyarthritis, unspecified Status: Acute (7) Hypertension: Code(s): I10 - Essential (primary) hypertension Status: Acute (8) Diabetes 1.5, managed as type 2: Code(s): 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 - Other specified diabetes mellitus without complications Status: Acute (9) Brainstem stroke: Code(s): I63.9 - Cerebral infarction, unspecified Status: Acute DS: Summary Hospital Course Reason for hospitalization: this 58-year-old gentleman was admitted admitted primarily because 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 from which she really has improved rather he has improved quite a bit and was able to be discharged home with home health Hospital Course: during the course of hospitalization the patient received the PT OT and speech he did go through the modified barium swallow and was able to eat so the functional independent measures at the time of discharge were eating independent oral hygiene independent toileting setup bathing supervision upper body dressings independent lower body dressing supervision foot where independent rolling in bed independent sitting to lying independent lying to sitting independent [id number] supervision chair transfers supervision toilet transfers supervision car transfers supervision so walking 10 feet supervision walking 50 feet with 2 turns supervision walking 150 feet patient was unable to walking 10 feet a name in surfaces supervision [place] step supervision 4 step supervision 12 steps partial assistance became objects supervision wheelchair 50 feet independent wheelchair 150 feet independent patient was sent home with home health no falls were recorded Time Spent with Patient Time attestation: Total time spent providing and/or coordinating discharge services: Exam Const: General: comfortable and no acute distress HENMT: Ears: TM's normal bilaterally General nose exam: Normal nares present Eyes: General: appearance normal, both eyes and all related structures Neck: Neck: supple and no JVD Resp: Effort & Inspection: normal respiratory effort Auscultation: clear to auscultation bilaterally Cardio: Rate: regular rate Rhythm: regular rhythm GI: GI Palp: Yes Soft to palpation Auscultation: normal bowel sounds Skin: General skin exam: normal color and no rashes or lesions noted Neuro: Other: patient is awake and alert well oriented time place and person has normal speech and language function his dysphagia has gone he is eating fairly well and his hemiparesis has significantly improved as mentioned in the above independent measures Extrem: General: normal to inspection Psych: Mental Status: mental status grossly normal Discharge Plan Discharge Attending physician on discharge: Clay Brady Discharging Clinician: Clay Brady Anticipated Discharge Date/Time: 08/07/19 14:38 Patient Disposition: Home Health Service Activity: may shower and no driving Diet: diabetic Discharge Instructions: Per Care Coordination: Home Health services have been arranged through [facility]. [facility] Home Health can be contacted at [phone]. Please fax discharge instructions to
== END 2019-08-07 10:55 | disposition home health service (06) | DRG 57 ==
PROVIDERS: Admitting Provider Psychiatry & Neurology Neurology; Visit Provider Psychiatry & Neurology Neurology
DX: I69.354 Hemiplegia and hemiparesis following cerebral infarction affecting left non-dominant side (principal); I69.351 Hemiplegia and hemiparesis following cerebral infarction affecting right dominant side; I69.392 Facial weakness following cerebral infarction; I69.322 Dysarthria following cerebral infarction; I69.391 Dysphagia following cerebral infarction; I69.398 Other sequelae of cerebral infarction; R13.10 Dysphagia, unspecified; H51.8 Other specified disorders of binocular movement; E11.9 Type 2 diabetes mellitus without complications; E78.5 Hyperlipidemia, unspecified; I10 Essential (primary) hypertension; M25.512 Pain in left shoulder; M13.0 Polyarthritis, unspecified; Z93.1 Gastrostomy status; Z79.4 Long term (current) use of insulin
CPT/HCPCS: 36415; 49465; 80048; 80061; 83036; 85025; 92507; 92523; 92526; 92610; 92611; 97110; 97116; 97162; 97166; 97530; 97535; 97542; A9270; J1650; J1815